=== PATIENT | female | born 1995 | race Caucasian/White ===

== ENCOUNTER 2017-07-18 21:57 | Emergency (ER) | payer OTHER ==
[2017-07-18 22:04] VITALS: BP 138/66; PULSE 120; TEMP 99.6; BMI 26.5
[2017-07-18] MEDS ORDERED: SODIUM CHLORIDE 0.9% 1000 ML INFUS.BAG IV ONE (22:34)
[2017-07-18] MEDS ORDERED: ONDANSETRON 4 MG/2 ML VIAL IVPUSH ONE (22:34)
[2017-07-18] MEDS ORDERED: LOPERAMIDE HCL 1 MG/5 ML UNIT DOSE CUP PO ONE (22:34)
--- NOTE | 2017-07-18 23:00 | PDOC ---
History of Present Illness - General Chief Complaint: Vomiting/Diarrhea Stated Complaint: FLU Time Seen by Provider: 07/18/17 22:00 - History of Present Illness Initial Comments: 07/18/17 22:55 CHIEF COMPLAINT: sore throat, vomiting, diarrhea HISTORY OF PRESENT ILLNESS: 21 yo F with no PMH presents to [facility] with cold symptoms, nausea, vomiting, and diarrhea. Patient reports that she started having a sore throat and chest discomfort yesterday. Today she vomited 4 times and had diarrhea "too many times to count." No recent travel or sick contacts. PAST MEDICAL HISTORY: Denies past medical history FAMILY HISTORY: Denies SOCIAL HISTORY: Denies tobacco, alcohol, illicit drug use. SURGICAL HISTORY: Denies ALLERGIES: No known drug allergies REVIEW OF SYSTEMS General/Constitutional: Denies fever or chills. Denies weakness. HEENT: Sore throat x 2 days. Denies change in vision. Denies ear pain or discharge. Cardiovascular: Denies chest pain or shortness of breath. Respiratory: Denies cough, wheezing, or hemoptysis. Gastrointestinal: Vomiting and diarrhea today. Denies rectal bleeding. Genitourinary: Denies dysuria, frequency, or change in urination. Musculoskeletal: Denies joint or muscle swelling or pain. Denies neck or back pain. Skin and breasts: Denies rash or easy bruising. Neurologic: Denies headache, vertigo, loss of consciousness, or loss of sensation. PHYSICAL EXAM General Appearance: Well-appearing, appropriately dressed. No apparent distress. HEENT: EOMI, PERRLA, normal ENT inspection, normal voice, TMs normal, pharynx normal. No conjunctival pallor. No photophobia, scleral icterus. Neck: Supple. Trachea midline. No tenderness, rigidity, carotid bruit, stridor , lymphadenopathy, or thyromegaly. Respiratory/Chest: Lungs CTAB. Cardiovascular: RRR. S1, S2. Gastrointestinal/Abdominal: Normal bowel sounds. Abdomen soft, non-distended. No tenderness or rebound tenderness. No organomegaly, pulsatile mass, guarding , hernia, hepatomegaly, splenomegaly. Musculoskeletal/Extremities: Normal inspection. FROM of all extremities, normal capillary refill. Pelvis Stable. No CVA tenderness. No tenderness to extremities, pedal edema, swelling, erythema or deformity. Integumentary: Appropriate color, dry, warm. No cyanosis, erythema, jaundice or rash Neurologic: gas regulator repairer helper II-XII intact. Fully oriented, alert. Appropriate mood/affect. Motor strength 5/5. No appreciable EOM palsy, facial droop or sensory deficit. Past History - Past Medical History Allergies/Adverse Reactions: Allergies Allergy/AdvReac Type Severity Reaction Status Date / Time No Known Allergies Allergy Verified 07/18/17 22:41 Home Medications: Ambulatory Orders Ibuprofen 600 mg PO Q6H PRN #28 tablet 07/19/17 Loperamide HCl/Simethicone [Imodium Multi-Symptom Rel Cplt] 1 each PO BID PRN # 14 tablet 07/19/17 Ondansetron [Zofran *Odt*] 8 mg SL TID #21 od.tablet 07/19/17 Pseudoephedrine HCl [Sudafed 12 Hour] 120 mg PO BID #14 tablet.er 07/19/17 - Suicide/Smoking/Psychosocial Hx Smoking History: Never smoked Have you smoked in the past 12 months: No Information on smoking cessation initiated: No Hx Alcohol Use: No Drug/Substance Use Hx: No *Physical Exam - Vital Signs Last Vital Signs Temp Pulse Resp BP Pulse Ox 99.6 F 120 H 19 138/66 98 07/18/17 22:03 07/18/17 22:03 07/18/17 22:03 07/18/17 22:03 07/18/17 22:03 ED Treatment Course - LABORATORY CBC & Chemistry Diagram: 07/18/17 23:13 07/18/17 23:13 Medical Decision Making - Medical Decision Making 07/19/17 00:59 21 yo F with no PMH presents to [facility] with cold symptoms, nausea, vomiting , and diarrhea. -CBC, CMP, lipase -UA, UCx, Upreg VS remakarable for temp 99.6 F and tachycardia to 120. Patient exam unremarkable. -Zofran, fluid, loperamide Repeat vitals temp 98.2 *DC/Admit/Observation/Transfer Diagnosis at time of Disposition: Viral syndrome - Discharge Dispostion Admit: No - Prescriptions Prescriptions: Ibuprofen 600 mg PO Q6H PRN #28 tablet PRN Reason: Fever or body aches Loperamide HCl/Simethicone [Imodium Multi-Symptom Rel Cplt] 1 each PO BID PRN # 14 tablet PRN Reason: Diarrhea Pseudoephedrine HCl [Sudafed 12 Hour] 120 mg PO BID #14 tablet.er Ondansetron [Zofran *Odt*] 8 mg SL TID #21 od.tablet - Referrals Referrals: Aidan Michaud MD [Staff Physician] - - Patient Instructions Printed Discharge Instructions: DI for Viral Syndrome Additional Instructions: Take medications as prescribed. Please follow up with your primary care doctor this week. If you develop fever unrelieved by Motrin, persistent vomiting, inability to tolerate any food or fluids, or any new or worsening symptoms, please return to the ER.
[2017-07-18] MEDS ORDERED: ONDANSETRON 4 MG/2 ML VIAL ONE (23:18)
[2017-07-18 23:19] LABS: URINE APPEARANCE SLCLOUDY; URINE BILIRUBIN NEGATIVE (NEGATIVE); URINE BLOOD 1+ (NEGATIVE); URINE COLOR YELLOW; URINE GLUCOSE (UA) NEGATIVE (NEGATIVE); URINE KETONE NEGATIVE (NEGATIVE); URINE NITRITE NEGATIVE (NEGATIVE); URINE PROTEIN NEGATIVE (NEGATIVE); URINE UROBILINOGEN NEGATIVE mg/dL (0.2-1.0)
[2017-07-18 23:19] LABS: BASOPHIL 0.4 % (0-2.0); EOSINOPHIL 0.4 % (0-4.5); MCH 30.5 pg (25.7-33.7); MCHC 34.1 g/dl (32.0-36.0); MEAN CELL VOLUME 89.4 fl (80-96); MEAN PLT VOLUME 7.6 fl (7.5-11.1); NEUTROPHILS 91.4 % (42.8-82.8); PLATELET COUNT 257 K/MM3 (134-434); WHITE BLOOD COUNT 16.3 K/mm3 (4.0-10.0)
[2017-07-18] MEDS ORDERED: LOPERAMIDE HCL 2 MG CAPSULE ONE (23:19)
[2017-07-18 23:22] LABS: URINE BACTERIA RARE /hpf (NONE SEEN); URINE HYALINE CAST 1 /lpf; URINE MUCUS RARE; URINE RBC 1 /hpf (0-3); URINE WBC 3 /hpf (3-5)
[2017-07-18] MEDS ORDERED: ACETAMINOPHEN 325 MG TABLET (FP) PO ONE (23:24)
[2017-07-18] MEDS ORDERED: KETOROLAC TROMETHAMINE 30 MG/1 ML VIAL IVPUSH ONE (23:25)
--- NOTE | 2017-07-18 23:33 | PDOC ---
*Physical Exam - Vital Signs Last Vital Signs Temp Pulse Resp BP Pulse Ox 99.6 F 120 H 19 138/66 98 07/18/17 22:03 07/18/17 22:03 07/18/17 22:03 07/18/17 22:03 07/18/17 22:03 - Physical Exam Comments: 07/18/17 23:33 The patient was examined by [PRANEETH Cm] under my direct supervision. I personally evaluated the patient. I concur with the above findings and the plan of care. ED Treatment Course - LABORATORY CBC & Chemistry Diagram: 07/18/17 23:13 07/18/17 23:13 - ADDITIONAL ORDERS Additional order review: Laboratory Results 07/18/17 23:16 Urine Color Yellow Urine Appearance Slcloudy Urine pH 5.0 Urine Protein Negative Urine Glucose (UA) Negative Urine Ketones Negative Urine Blood 1+ H Urine Nitrite Negative Urine Bilirubin Negative Urine Urobilinogen Negative Urine RBC 1 Urine WBC 3 Ur Epithelial Cells Rare Urine Bacteria Rare Hyaline Casts 1 Urine Mucus Rare 07/18/17 23:13 RBC 4.76 MCV 89.4 MCHC 34.1 RDW 14.0 MPV 7.6 Neutrophils % 91.4 H Lymphocytes % 3.9 L Monocytes % 3.9 Eosinophils % 0.4 Basophils % 0.4 - Medications Given in the ED: ED Medications Discontinued Medications Generic Name Dose Route Start Last Admin Trade Name Freq PRN Reason Stop Dose Admin Acetaminophen 650 mg 07/18/17 23:24 07/18/17 23:27 Tylenol - PO 07/18/17 23:25 Not Given ONCE ONE Loperamide HCl 2 mg 07/18/17 22:34 07/18/17 23:26 Imodium Liquid - PO 07/18/17 22:35 2 mg ONCE ONE Administration Ondansetron HCl 8 mg 07/18/17 22:34 07/18/17 23:26 Zofran Injection IVPUSH 07/18/17 22:35 8 mg ONCE ONE Administration Sodium Chloride 1,000 ml 07/18/17 22:34 07/18/17 23:26 Normal Saline - IV 07/18/17 22:35 1,000 ml ONCE ONE Administration *DC/Admit/Observation/Transfer Diagnosis at time of Disposition: Viral syndrome - Discharge Dispostion Disposition: HOME - Prescriptions Prescriptions: Ibuprofen 600 mg PO Q6H PRN #28 tablet PRN Reason: Fever or body aches Loperamide HCl/Simethicone [Imodium Multi-Symptom Rel Cplt] 1 each PO BID PRN # 14 tablet PRN Reason: Diarrhea Pseudoephedrine HCl [Sudafed 12 Hour] 120 mg PO BID #14 tablet.er Ondansetron [Zofran *Odt*] 8 mg SL TID #21 od.tablet - Referrals Referrals: Aidan Michaud MD [Staff Physician] - - Patient Instructions Printed Discharge Instructions: DI for Viral Syndrome Additional Instructions: Take medications as prescribed. Please follow up with your primary care doctor this week. If you develop fever unrelieved by Motrin, persistent vomiting, inability to tolerate any food or fluids, or any new or worsening symptoms, please return to the ER.
[2017-07-18 23:55] LABS: ALBUMIN 4.2 g/dl (3.4-5.0); ANION GAP 11 (8-16); BILIRUBIN,TOTAL 0.6 mg/dL (0.2-1.0); CALCIUM 9.1 mg/dL (8.5-10.1); CO2 25 mmol/L (21-32); CREATININE 0.7 mg/dL (0.55-1.02); GLUCOSE,RANDOM 102 mg/dL (74-106); SGOT/AST 14 U/L (15-37); SGPT/ALT 27 U/L (12-78); TOT PROT 8.1 g/dl (6.4-8.2)
[2017-07-18 23:56] LABS: ALK PHOS 64 U/L (45-117)
[2017-07-19] MEDS ORDERED: KETOROLAC TROMETHAMINE 30 MG/1 ML VIAL ONE (00:44)
[2017-07-19] MEDS ORDERED: SODIUM CHLORIDE 0.9% 500 ML INFUS.BAG IV ONE (01:10)
[2017-07-19 11:56] LABS: URINE LEUK ESTERASE Negative (NEGATIVE)
== END 2017-07-19 02:07 | disposition home or self-care (01) ==
LOC: JER 21:57
DX: B34.9 Viral infection, unspecified (principal)
CPT/HCPCS: 36415; 80053; 81003; 81015; 83605; 83690; 84703; 85025; 87070; 87077; 87086; 87430; 87804; 99283-25

== ENCOUNTER 2017-09-21 08:17 | Emergency (ER) | payer OTHER ==
[2017-09-21 08:22] VITALS: BMI 30.2
[2017-09-21] MEDS ORDERED: morphine CARPU-JECT 2 MG/1 ML DISP.SYRIN IVPUSH ONE (09:43)
[2017-09-21] MEDS ORDERED: ONDANSETRON 4 MG/2 ML VIAL IVPUSH ONE (09:43)
[2017-09-21] MEDS ORDERED: ONDANSETRON 4 MG/2 ML VIAL ONE (09:54)
[2017-09-21] MEDS ORDERED: morphine CARPU-JECT 8 MG/1 ML DISP.SYRIN ONE (09:54)
--- NOTE | 2017-09-21 09:58 | PDOC ---
History of Present Illness - General Chief Complaint: Vaginal Bleeding Stated Complaint: PAIN, VAGINAL BLEEDING Time Seen by Provider: 09/21/17 09:25 History Source: Patient Exam Limitations: No Limitations - History of Present Illness Travel History: No Initial Comments: 09/21/17 09:53 22 y/o female presents with heavy vaginal bleeding since this morning which she states is when her menses was due today. Patient denies history of endometriosis fibroids, heavy or irregular menses. Patient states has had painful menstruation the past and was placed on or contraceptives years ago by her CARTOGRAPHIC ENGINEER but stopped about 6 months ago Patient also denies . Patient states since this morning has vomited approximately 8 times and is having severe lower abdominal cramping without weakness, chills, or change in urine pattern. Timing/Duration: reports: constant Quality: reports: moderate, cramping Abdominal Pain Onset Location: reports: suprapubic Pain Radiation: reports: no radiation Aggravating Factors: improves with: None Alleviating Factors: improves with: None Past History - Travel Traveled outside of the country in the last 30 days: No - Past Medical History Allergies/Adverse Reactions: Allergies Allergy/AdvReac Type Severity Reaction Status Date / Time No Known Allergies Allergy Verified 09/21/17 08:22 Home Medications: Ambulatory Orders Ibuprofen [Motrin -] 600 mg PO TID PRN #21 tablet 09/21/17 COPD: No - Reproductive History LMP Normal: Yes Is Patient Now?: No - Suicide/Smoking/Psychosocial Hx Smoking History: Never smoked Have you smoked in the past 12 months: No Information on smoking cessation initiated: No Hx Alcohol Use: No Drug/Substance Use Hx: No Substance Use Type: None Patient Lives Alone: No Lives with/in: parents Review of Systems - Review of Systems Able to Perform ROS?: Yes Constitutional: No: Symptoms Reported HEENTM: No: Symptoms Reported Respiratory: No: Symptoms reported Cardiac (ROS): No: Symptoms Reported ABD/GI: Yes: Nausea, Vomiting, Abdominal cramping : Yes: Discharge (vaginal bleeding) Musculoskeletal: Yes: Back Pain (mild low) Integumentary: No: Symptoms Reported Neurological: No: Symptoms reported Hematologic/Lymphatic: No: Symptoms Reported *Physical Exam - Vital Signs Last Vital Signs Temp Pulse Resp BP Pulse Ox 97.9 F 74 18 132/61 97 09/21/17 08:19 09/21/17 08:19 09/21/17 08:19 09/21/17 08:19 09/21/17 08:19 - Physical Exam General Appearance: Yes: Nourished, Appropriately Dressed. No: Apparent Distress HEENT: positive: EOMI, [place], Pharynx Normal. negative: Pale Conjunctivae Neck: positive: Normal Thyroid, Supple Respiratory/Chest: positive: Lungs Clear, Normal Breath Sounds. negative: Respiratory Distress, Accessory Muscle Use Cardiovascular: positive: Regular Rhythm, Regular Rate. negative: Murmur Female Pelvic Exam: positive: vaginal bleeding (bright red) Gastrointestinal/Abdominal: positive: Normal Bowel Sounds, Soft, Tenderness ( midsuprapubic). negative: Distended, Guarding, Rebound Musculoskeletal: negative: CVA Tenderness Extremity: positive: Normal Capillary Refill Integumentary: positive: Normal Color, Warm, Moist Neurologic: positive: Motor Strength 5/5 (ambulatory) ED Treatment Course - LABORATORY CBC & Chemistry Diagram: 09/21/17 09:30 09/21/17 09:30 Medical Decision Making - Medical Decision Making 09/21/17 10:22 Pt with heavy menses and lower abd pain since this am. Pt vomited approx. 7-8 times. Pt on exam has midsuprabic tenderness. history of dysmenorrhea. Pt ordered for cbc, comp, lipase, mag, ua, upreg, zofran, ivf, morphine. Will consider ultrasound once diagnostics have resulted. 09/21/17 12:13 Laboratory Tests 09/21/17 09/21/17 09/21/17 09:30 09:30 10:20 WBC 10.5 H D Hgb 14.2 Hct 43.2 Neutrophils % 83.6 H Sodium 137 Potassium 4.2 D Chloride 107 Carbon Dioxide 24 Anion Gap 6 L BUN 9 D Creatinine 0.6 Random Glucose 104 Calcium 8.8 Magnesium 2.1 Total Bilirubin 0.5 AST 25 D ALT 58 D Urine Ketones Negative Urine Blood 3+ H Urine Nitrite Negative Ur Leukocyte Esterase Pending Urine RBC (Auto) 1557 Ur Epithelial Cells Rare Urine HCG, Qual Negative Patient ordered for ultrasound to rule out fibroids versus endometriosis. Patient otherwise comfortable 09/21/17 13:43 Ultrasound shows no uterine pathology noted. This is not free fluid noted within the cul-de-sac. Endometrial thickness appears unremarkable. There is no evidence of ovarian torsion. Patient be recommended to follow-up with her CARTOGRAPHIC ENGINEER. Patient also given prescription for Motrin 600 to take every 8 hours. 09/21/17 13:53 *DC/Admit/Observation/Transfer Diagnosis at time of Disposition: Dysmenorrhea - Discharge Dispostion Disposition: HOME Condition at time of disposition: Improved - Prescriptions Prescriptions: Ibuprofen [Motrin -] 600 mg PO TID PRN #21 tablet PRN Reason: Pain - Referrals - Patient Instructions Printed Discharge Instructions: DI for Dysmenorrhea Additional Instructions: May take Motrin for discomfort and please follow-up with your CARTOGRAPHIC ENGINEER. - Post Discharge Activity
[2017-09-21 10:31] LABS: URINE APPEARANCE SLCLOUDY; URINE BILIRUBIN NEGATIVE (NEGATIVE); URINE BLOOD 3+ (NEGATIVE); URINE COLOR LTYELLOW; URINE GLUCOSE (UA) NEGATIVE (NEGATIVE); URINE KETONE NEGATIVE (NEGATIVE); URINE LEUK ESTERASE NEGATIVE (NEGATIVE); URINE NITRITE NEGATIVE (NEGATIVE); URINE UROBILINOGEN NEGATIVE mg/dL (0.2-1.0)
[2017-09-21 10:32] LABS: BASO % 0.4 % (0-2.0); EOS % 0.8 % (0-4.5); MCH 29.6 pg (25.7-33.7); MCHC 32.9 g/dl (32.0-36.0); MEAN CELL VOLUME 89.9 fl (80-96); MEAN PLT VOLUME 7.7 fl (7.5-11.1); NEUT % 83.6 % (42.8-82.8); PLATELET COUNT 277 K/MM3 (134-434); RDW 14.3 % (11.6-15.6); WHITE BLOOD COUNT 10.5 K/mm3 (4.0-10.0)
[2017-09-21 10:40] LABS: URINE PROTEIN 1+ (NEGATIVE)
[2017-09-21 10:43] LABS: URINE RBC 1557 /hpf (0-3)
[2017-09-21 10:54] LABS: ANION GAP 6 (8-16); BILIRUBIN,TOTAL 0.5 mg/dL (0.2-1.0); CALCIUM 8.8 mg/dL (8.5-10.1); CO2 24 mmol/L (21-32); CREATININE 0.6 mg/dL (0.55-1.02); GLUCOSE,RANDOM 104 mg/dL (74-106); MAGNESIUM 2.1 mg/dL (1.8-2.4); SGOT/AST 25 U/L (15-37); SGPT/ALT 58 U/L (12-78)
[2017-09-21 10:55] LABS: ALK PHOS 67 U/L (45-117)
--- NOTE | 2017-09-21 13:05 | PDOC ---
*Physical Exam - Vital Signs Last Vital Signs Temp Pulse Resp BP Pulse Ox 97.9 F 74 18 132/61 97 09/21/17 08:19 09/21/17 08:19 09/21/17 08:19 09/21/17 08:19 09/21/17 08:19 ED Treatment Course - LABORATORY CBC & Chemistry Diagram: 09/21/17 09:30 09/21/17 09:30 - ADDITIONAL ORDERS Additional order review: Laboratory Results 09/21/17 09/21/17 10:20 09:30 Sodium 137 Potassium 4.2 D Chloride 107 Carbon Dioxide 24 Anion Gap 6 L BUN 9 D Creatinine 0.6 Creat Clearance w eGFR > 60 Random Glucose 104 Calcium 8.8 Magnesium 2.1 Total Bilirubin 0.5 AST 25 D ALT 58 D Alkaline Phosphatase 67 Total Protein 8.0 Albumin 4.0 Lipase 105 Urine Color Ltyellow Urine Appearance Slcloudy Urine pH 5.0 Ur Specific [place] 1.023 Urine Protein 1+ H Urine Glucose (UA) Negative Urine Ketones Negative Urine Blood 3+ H Urine Nitrite Negative Urine Bilirubin Negative Urine Urobilinogen Negative Urine WBC (Auto) None Urine RBC (Auto) 1557 Ur Epithelial Cells Rare Urine HCG, Qual Negative 09/21/17 09:30 RBC 4.80 MCV 89.9 MCHC 32.9 RDW 14.3 MPV 7.7 Neutrophils % 83.6 H Lymphocytes % 10.7 D Monocytes % 4.5 Eosinophils % 0.8 D Basophils % 0.4 - Medications Given in the ED: ED Medications Discontinued Medications Generic Name Dose Route Start Last Admin Trade Name Freq PRN Reason Stop Dose Admin Morphine Sulfate 4 mg 09/21/17 09:43 09/21/17 10:14 Morphine Injection - IVPUSH 09/21/17 09:44 4 mg ONCE ONE Administration Ondansetron HCl 4 mg 09/21/17 09:43 09/21/17 10:14 Zofran Injection IVPUSH 09/21/17 09:44 4 mg ONCE ONE Administration Medical Decision Making - Medical Decision Making 09/21/17 13:02 Patient seen and evaluated with the nurse practitioner. I agree with the overall evaluation, assessment, and management with the following summary of visit: 22y/o non female p/w pelvic pain. r/o fibroids v. torsion v. UTI. labs, ua tvus pain control dispo accordingly
[2017-09-21 14:29] VITALS: BP 121/75; PULSE 76; TEMP 98.6
[2017-09-21 15:57] LABS: URINE LEUK ESTERASE Negative (NEGATIVE)
== END 2017-09-21 14:00 | disposition home or self-care (01) ==
LOC: JER 08:17
PROC: 3E033NZ Introduction of Analgesics, Hypnotics, Sedatives into Peripheral Vein, Percutaneous Approach (ICD-10-PCS; principal; 2017-09-21)
PROC: 3E033GC Introduction of Other Therapeutic Substance into Peripheral Vein, Percutaneous Approach (ICD-10-PCS; 2017-09-21)
DX: N94.6 Dysmenorrhea, unspecified (principal)
CPT/HCPCS: 36415; 76830-TC; 80053; 81003; 81015; 83690; 83735; 84703; 85025; 99284-25

== ENCOUNTER 2017-11-30 19:08 | Emergency (ER) | payer OTHER ==
[2017-11-30] MEDS ORDERED: ONDANSETRON *ODT* 4 MG TABLET SL ONE (19:12)
--- NOTE | 2017-11-30 19:14 | PDOC ---
Rapid Medical Evaluation Chief Complaint: Cold Symptoms Time Seen by Provider: 11/30/17 19:10 Medical Evaluation: Allergies Allergy/AdvReac Type Severity Reaction Status Date / Time No Known Allergies Allergy Verified 09/21/17 08:22 11/30/17 19:11 CC: c/o " i think i have the flu." today with bodyaches, fever, vomiting, cough since yesterday. denies throat radha TMAX: 101. Tylenol : 11am + sick contacts with Influenza. PE: Patient alert ox3. breath sounds clear Plan: Urine hcg, zofran ODT. Patient to fast track for further management. 11/30/17 19:13
[2017-11-30 19:15] VITALS: BP 136/76; TEMP 100.7; BMI 31.1
[2017-11-30] MEDS ORDERED: ONDANSETRON *ODT* 4 MG TABLET ONE (19:16)
--- NOTE | 2017-11-30 19:35 | PDOC ---
History of Present Illness - General Chief Complaint: Respiratory Stated Complaint: COLD SYPTOMS Time Seen by Provider: 11/30/17 19:10 History Source: Patient Exam Limitations: No Limitations - History of Present Illness Initial Comments: 11/30/17 19:34 Best Contact: Pmhx:N/A Pshx: N/A Allergies: NKDA LMP: 11.12.2017 22-year-old female presents to the emergency department complaining of frontal headache, nausea/vomiting, fever/chills, general malaise without facial pains, rhinorrhea, nasal congestion, sore throat, neck pain/stiffness, back pain, chest pain, shortness of breath, abdominal pains, flank pains, urinary symptoms. Timing/Duration: reports: yesterday Past History - Past Medical History Allergies/Adverse Reactions: Allergies Allergy/AdvReac Type Severity Reaction Status Date / Time No Known Allergies Allergy Verified 11/30/17 19:11 Home Medications: Ambulatory Orders Acetaminophen [Tylenol] 325 mg PO QID PRN 11/30/17 Oseltamivir Phosphate [Tamiflu -] 75 mg PO BID #10 capsule 11/30/17 COPD: No - Suicide/Smoking/Psychosocial Hx Smoking History: Never smoked Have you smoked in the past 12 months: No Hx Alcohol Use: No Drug/Substance Use Hx: No Substance Use Type: None Review of Systems - Review of Systems Able to Perform ROS?: Yes Comments:: 11/30/17 19:33 CONSTITUTIONAL: +fever/chills, generalized weakness, malaise Absent: diaphoresis, loss of appetite HEENT: Absent: rhinorrhea, nasal congestion, throat pain, throat swelling, difficulty swallowing, mouth swelling, ear pain, eye pain, visual Changes CARDIOVASCULAR: Absent: chest pain, loss of consciousness, palpitations, irregular heart rate, peripheral edema RESPIRATORY: Absent: cough, shortness of breath, dyspnea with exertion, orthopnea, wheezing, stridor, hemoptysis GASTROINTESTINAL: Absent: abdominal pain, abdominal distension, nausea, vomiting, diarrhea, constipation, melena, hematochezia GENITOURINARY: Absent: dysuria, frequency, urgency, hesitancy, hematuria, flank pain, genital pain MUSCULOSKELETAL: Absent: myalgia, arthralgia, joint swelling SKIN: Absent: rash, itching, pallor Is the patient limited [place] proficient: No *Physical Exam - Vital Signs Last Vital Signs Temp Pulse Resp BP Pulse Ox 100.7 F H 113 H 22 136/76 96 11/30/17 19:13 11/30/17 19:13 11/30/17 19:13 11/30/17 19:13 11/30/17 19:13 - Physical Exam Comments: 11/30/17 19:34 GENERAL: Well developed, well nourished. Awake and alert. No acute distress. HEENT: Normocephalic, atraumatic. PERRLA, EOMI. No conjunctival pallor. Sclera are non- icteric. Moist mucous membranes. Oropharynx is clear. NECK: Supple. Full ROM. No JVD. Carotid pulses 2+ and symmetric, without bruits. No thyromegaly. No lymphadenopathy. CARDIOVASCULAR: Regular rate and rhythm. No murmurs, rubs, or gallops. Distal pulses are 2+ and symmetric. PULMONARY: No evidence of respiratory distress. Lungs clear to auscultation bilaterally. No wheezing, rales or rhonchi. ABDOMINAL: Soft. Non-tender. Non-distended. No rebound or guarding. No organomegaly. Normoactive bowel sounds. MUSCULOSKELETAL Normal range of motion at all joints. No bony deformities or tenderness. No CVA tenderness. EXTREMITIES: No cyanosis. No clubbing. No edema. No calf tenderness. SKIN: Warm and dry. Normal capillary refill. No rashes. No jaundice. ED Treatment Course - Medications Given in the ED: ED Medications Discontinued Medications Generic Name Dose Route Start Last Admin Trade Name Sunilq PRN Reason Stop Dose Admin Ondansetron HCl 4 mg 11/30/17 19:12 11/30/17 19:19 Zofran Odt - SL 11/30/17 19:13 4 mg ONCE ONE Administration *DC/Admit/Observation/Transfer Diagnosis at time of Disposition: Influenza - Discharge Dispostion Disposition: HOME Condition at time of disposition: Stable Admit: No - Prescriptions Prescriptions: Oseltamivir Phosphate [Tamiflu -] 75 mg PO BID #10 capsule - Referrals Referrals: ON STAFF,NOT [Primary Care Provider] - - Patient Instructions Printed Discharge Instructions: Influenza Additional Instructions: Increase fluids Tylenol alternating with Motrin as needed for fever/pain Tamiflu as prescribed Return to the ER for severe/persistent/worsening symptoms - Post Discharge Activity
[2017-11-30 20:39] LABS: URINE APPEARANCE CLEAR; URINE BILIRUBIN NEGATIVE (NEGATIVE); URINE BLOOD NEGATIVE (NEGATIVE); URINE COLOR YELLOW; URINE GLUCOSE (UA) NEGATIVE (NEGATIVE); URINE KETONE 1+ (NEGATIVE); URINE LEUK ESTERASE NEGATIVE (NEGATIVE); URINE NITRITE NEGATIVE (NEGATIVE); URINE UROBILINOGEN NEGATIVE mg/dL (0.2-1.0)
[2017-11-30 20:51] LABS: URINE PROTEIN 1+ (NEGATIVE)
[2017-11-30 20:55] LABS: EPI CELLS RARE /HPF (FEW); URINE BACTERIA RARE /hpf (NONE SEEN); URINE HYALINE CAST 2 /lpf; URINE MUCUS MANY
[2017-11-30] MEDS ORDERED: KETOROLAC TROMETHAMINE 60 MG/2 ML VIAL IM ONE (21:02)
[2017-11-30] MEDS ORDERED: SULFAMETHOXAZOLE/TRIMETHOPRIM 800MG/160MG D.S. TABLET PO ONE (21:02)
[2017-11-30] MEDS ORDERED: PHENAZOPYRIDINE HCL 100 MG TABLET (FP) PO ONE (21:03)
[2017-11-30] MEDS ORDERED: SODIUM CHLORIDE 1,000 ML IV STA (21:04)
[2017-11-30] MEDS ORDERED: KETOROLAC TROMETHAMINE 60 MG/2 ML VIAL ONE (21:07)
[2017-11-30 21:33] VITALS: PULSE 102
[2017-11-30 21:59] LABS: HCG,QUALITATIVE URINE NEGATIVE
== END 2017-11-30 21:23 | disposition home or self-care (01) ==
LOC: JERFT 19:08
DX: J11.1 Influenza due to unidentified influenza virus with other respiratory manifestations (principal)
CPT/HCPCS: 81003; 81015; 84703; 99281-25

== ENCOUNTER 2018-02-06 12:44 | Emergency (ER) | payer OTHER ==
[2018-02-06 12:48] VITALS: BP 115/76; PULSE 89; TEMP 98.5; BMI 33.7
--- NOTE | 2018-02-06 13:26 | PDOC ---
History of Present Illness - General Chief Complaint: Rash Stated Complaint: RASH Time Seen by Provider: 02/06/18 12:53 - History of Present Illness Initial Comments: 02/06/18 13:36 CHIEF COMPLAINT: rash HISTORY OF PRESENT ILLNESS: 22 yo F with no significant PMH presents to [facility] with generalized rash x 2 days. Patient reports that she was seen at urgent care yesterday and has been taking 50 mg of Benadryl every 6 hours, but the rash got worse this morning and spread to her legs. She denies any swelling to the face, throat, neck, mouth, tongue, or neck, and denies any respiratory distress. Per her photos, the rash has since started to improve since this morning. PAST MEDICAL HISTORY: Denies past medical history FAMILY HISTORY: Denies SOCIAL HISTORY: Denies tobacco, alcohol, illicit drug use. SURGICAL HISTORY: Denies ALLERGIES: No known drug allergies REVIEW OF SYSTEMS General/Constitutional: Denies fever or chills. Denies weakness, weight change. HEENT: Denies change in vision. Denies ear pain or discharge. Denies sore throat. Cardiovascular: Denies chest pain or shortness of breath. Respiratory: Denies cough, wheezing, or hemoptysis. Gastrointestinal: Denies nausea, vomiting, diarrhea or constipation. Denies rectal bleeding. Genitourinary: Denies dysuria, frequency, or change in urination. Musculoskeletal: Denies joint or muscle swelling or pain. Denies neck or back pain. Skin: Scattered rash. PHYSICAL EXAM General Appearance: Well-appearing, appropriately dressed. No apparent distress. HEENT: EOMI, PERRLA. No conjunctival pallor. No photophobia, scleral icterus. Respiratory/Chest: Lungs CTAB. Cardiovascular: RRR. S1, S2. Musculoskeletal/Extremities: Normal inspection. FROM of all extremities, normal capillary refill. Pelvis Stable. No CVA tenderness. No tenderness to extremities, pedal edema, swelling, erythema or deformity. Integumentary: Scattered erythematous, pruritic rash to legs, no blisters, weeping lisons. Appropriate color, dry, warm. No cyanosis, erythema, jaundice or rash Neurologic: staff pharmacist II-XII intact. Fully oriented, alert. Appropriate mood/affect. Motor strength 5/5. No appreciable EOM palsy, facial droop or sensory deficit. Past History - Past Medical History Allergies/Adverse Reactions: Allergies Allergy/AdvReac Type Severity Reaction Status Date / Time No Known Allergies Allergy Verified 02/06/18 12:48 Home Medications: Ambulatory Orders Acetaminophen [Tylenol] 325 mg PO QID PRN 11/30/17 Ondansetron [Ondansetron Odt] 4 mg PO TID #5 tab.rapdis 11/30/17 Ondansetron [Zofran -] 4 mg PO BID #5 tablet 11/30/17 Oseltamivir Phosphate [Tamiflu -] 75 mg PO BID #10 capsule 11/30/17 Oseltamivir Phosphate [Tamiflu -] 75 mg PO BID #10 capsule 11/30/17 EPINEPHrine (EPI-PEN 0.3MG) [Epipen 0.3MG -] 0.3 mg IM ASDIR #2 pens 02/06/18 COPD: No - Suicide/Smoking/Psychosocial Hx Smoking History: Never smoked Have you smoked in the past 12 months: No Hx Alcohol Use: No Drug/Substance Use Hx: No Substance Use Type: None *Physical Exam - Vital Signs Last Vital Signs Temp Pulse Resp BP Pulse Ox 98.5 F 89 18 115/76 99 02/06/18 12:45 02/06/18 12:45 02/06/18 12:45 02/06/18 12:45 02/06/18 12:45 Medical Decision Making - Medical Decision Making 02/06/18 13:42 22 yo F with no significant PMH presents to [facility] track with generalized rash x 2 days. -decadron epipen rx sent to pharm *DC/Admit/Observation/Transfer Diagnosis at time of Disposition: Rash - Discharge Dispostion Disposition: HOME Condition at time of disposition: Stable Admit: No - Prescriptions Prescriptions: EPINEPHrine (EPI-PEN 0.3MG) [Epipen 0.3MG -] 0.3 mg IM ASDIR #2 pens - Referrals Referrals: Nadja Galdamez MD [Staff Physician] - - Patient Instructions Printed Discharge Instructions: DI for Rash Additional Instructions: Please follow up with the gas jockey for further skin testing. As discussed, if you develop ANY swelling to the face, neck, throat, tongue, lips, or mouth, or you develop any difficulty breathing, please use the Epipen immediately and go to the nearest emergency room. - Post Discharge Activity
[2018-02-06] MEDS ORDERED: DEXAMETHASONE LIQUID 0.5 MG/5 ML 240 ML BULK BOTTLE PO ONE (13:35)
[2018-02-06] MEDS ORDERED: DEXAMETHASONE SOD PHOSPHATE 10 MG/1 ML VIAL ONE (13:40)
== END 2018-02-06 14:41 | disposition home or self-care (01) ==
LOC: JERFT 12:44
DX: R21 Rash and other nonspecific skin eruption (principal)
CPT/HCPCS: 99281-25

== ENCOUNTER 2018-07-21 22:09 | Emergency (ER) | payer OTHER ==
[2018-07-21 22:12] VITALS: BP 116/69; PULSE 86; TEMP 98; BMI 32.2
[2018-07-21] MEDS ORDERED: DIPHTH,PERTUSS(ACELL),TET 0.5 ML DISP.SYRIN IM ONE (23:19)
--- NOTE | 2018-07-21 23:40 | PDOC ---
History of Present Illness - General Chief Complaint: Laceration Stated Complaint: LACERATION Time Seen by Provider: 07/21/18 23:12 - History of Present Illness Initial Comments: 07/21/18 23:36 CHIEF COMPLAINT: laceration HISTORY OF PRESENT ILLNESS: 22 yo F with no PMH presents to fast track with laceration to left hand s/p injury at work. 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 Patient reports last tetanus shot was approximately 10-11 years ago. No recent travel or sick contacts. PAST MEDICAL HISTORY: Denies past medical history FAMILY HISTORY: Denies SOCIAL HISTORY: Denies tobacco, alcohol, illicit drug use. SURGICAL HISTORY: Denies ALLERGIES: No known drug allergies REVIEW OF SYSTEMS General/Constitutional: Denies fever or chills. Denies weakness, weight change. HEENT: Denies change in vision. Denies ear pain or discharge. Denies sore throat. Cardiovascular: Denies chest pain or shortness of breath. Respiratory: Denies cough, wheezing, or hemoptysis. Gastrointestinal: Denies nausea, vomiting, diarrhea or constipation. Denies rectal bleeding. Genitourinary: Denies dysuria, frequency, or change in urination. Musculoskeletal: Denies joint or muscle swelling or pain. Denies neck or back pain. 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 No apparent distress , no intoxication. HEENT: EOMI, PERRLA, normal ENT inspection, normal voice, TMs normal, pharynx normal. No conjunctival pallor. No photophobia, scleral icterus. Neck: Supple. Trachea midline. No tenderness, rigidity, carotid bruit, stridor , lymphadenopathy, or thyromegaly. Respiratory/Chest: Lungs CTAB. No shortness of breath, chest tenderness, respiratory distress, accessory muscle use. No crackles, rales, rhonchi, stridor , wheezing, dullness Cardiovascular: RRR. S1, S2. No JVD, murmur, bradycardia, tachycardia. Vascular Pulses: Dorsalis-Pedis (R): 2+, Dorsalis-Pedis (L): 2+ Gastrointestinal/Abdominal: Normal bowel sounds. Abdomen soft, non-distended. No tenderness or rebound tenderness. No organomegaly, pulsatile mass, guarding , hernia, hepatomegaly, splenomegaly. Lymphatic: No adenopathy, tenderness. Musculoskeletal/Extremities: Normal inspection. FROM of all extremities, normal capillary refill. Pelvis Stable. No CVA tenderness. No tenderness to extremities, pedal edema, swelling, erythema or deformity. Integumentary: 0.5 cm superficial laceration to palmar aspect of left hand just proximal to 4th digit. No active bleeding, no tendon involvement, full ROM to all digits and hand. Appropriate color, dry, warm. No cyanosis, erythema, jaundice or rash Neurologic: digital tech II-XII intact. Fully oriented, alert. Appropriate mood/affect. Motor strength 5/5. No appreciable EOM palsy, facial droop or sensory deficit. Past History - Past Medical History Allergies/Adverse Reactions: Allergies Allergy/AdvReac Type Severity Reaction Status Date / Time No Known Allergies Allergy Verified 07/21/18 22:12 Home Medications: Ambulatory Orders Acetaminophen [Tylenol] 325 mg PO QID PRN 11/30/17 Ondansetron [Ondansetron Odt] 4 mg PO TID #5 tab.rapdis 11/30/17 Ondansetron [Zofran -] 4 mg PO BID #5 tablet 11/30/17 Oseltamivir Phosphate [Tamiflu -] 75 mg PO BID #10 capsule 11/30/17 Oseltamivir Phosphate [Tamiflu -] 75 mg PO BID #10 capsule 11/30/17 EPINEPHrine (EPI-PEN 0.3MG) [Epipen 0.3MG -] 0.3 mg IM ASDIR #2 pens 02/06/18 COPD: No - Suicide/Smoking/Psychosocial Hx Smoking History: Never smoked Have you smoked in the past 12 months: No Hx Alcohol Use: No Drug/Substance Use Hx: No Substance Use Type: None *Physical Exam - Vital Signs Last Vital Signs Temp Pulse Resp BP Pulse Ox 98.0 F 86 18 116/69 98 07/21/18 22:10 07/21/18 22:10 07/21/18 22:10 07/21/18 22:10 07/21/18 22:10 ED Treatment Course - Medications Given in the ED: ED Medications Discontinued Medications Generic Name Dose Route Start Last Admin Trade Name Freq PRN Reason Stop Dose Admin Diphtheria/Tetanus/Acell Pertussis 0.5 ml 07/21/18 23:19 07/21/18 23:33 Boostrix - IM 07/21/18 23:20 0.5 ml .ONCE ONE Administration Medical Decision Making - Medical Decision Making 07/21/18 23:38 22 yo F with no PMH presents to ED with superficial laceration to left hand. -tdap laceration repaired with skin adhesive, no active bleeding. *DC/Admit/Observation/Transfer Diagnosis at time of Disposition: Laceration - Discharge Dispostion Disposition: HOME Condition at time of disposition: Stable Decision to Admit order: No - Referrals Referrals: Ward Palacios MD [Staff Physician] - - Patient Instructions Printed Discharge Instructions: DI for Laceration Repair Additional Instructions: If the pain in your hand persists for more than 3-5 days, please follow up with the hand surgeon for further evaluation and treatment of your injury. Please monitor your injury for any signs of infection, including redness, warmth , swelling, or streaking from the site of injury. If any of these develop, or you develop fever, chills, vomiting, or diarrhea, please return to the ER. - Post Discharge Activity Forms/Work/School Notes: Back to Work
== END 2018-07-21 23:42 | disposition home or self-care (01) ==
LOC: JERFT 22:09 → JER 22:09
PROC: 3E0234Z Introduction of Serum, Toxoid and Vaccine into Muscle, Percutaneous Approach (ICD-10-PCS; principal; 2018-07-21)
PROC: 0HQGXZZ Repair Left Hand Skin, External Approach (ICD-10-PCS; 2018-07-21)
DX: S61.412A Laceration without foreign body of left hand, initial encounter (principal); W26.0XXA Contact with knife, initial encounter; Y93.G1 Activity, food preparation and clean up; Y92.89 Other specified places as the place of occurrence of the external cause; Y99.0 Civilian activity done for income or pay
CPT/HCPCS: 90715; 99282-25

== ENCOUNTER 2018-08-09 08:30 | Emergency (ER) | payer OTHER ==
[2018-08-09 08:38] VITALS: TEMP 98.8; BMI 32.2
--- NOTE | 2018-08-09 08:49 | PDOC ---
History of Present Illness - General Chief Complaint: Pain Stated Complaint: VAGINAL BLEEDING, NAUSEA Time Seen by Provider: 08/09/18 08:47 History Source: Patient Past History - Past Medical History Allergies/Adverse Reactions: Allergies Allergy/AdvReac Type Severity Reaction Status Date / Time No Known Allergies Allergy Verified 07/21/18 22:12 Home Medications: Ambulatory Orders Acetaminophen [Tylenol] 325 mg PO QID PRN 11/30/17 Ondansetron [Ondansetron Odt] 4 mg PO TID #5 tab.rapdis 11/30/17 EPINEPHrine (EPI-PEN 0.3MG) [Epipen 0.3MG -] 0.3 mg IM ASDIR #2 pens 02/06/18 COPD: No - Suicide/Smoking/Psychosocial Hx Smoking History: Never smoked Have you smoked in the past 12 months: No Hx Alcohol Use: No Drug/Substance Use Hx: No Substance Use Type: None *Physical Exam - Vital Signs Last Vital Signs Temp Pulse Resp BP Pulse Ox 98.8 F 79 20 129/74 98 08/09/18 08:36 08/09/18 08:36 08/09/18 08:36 08/09/18 08:36 08/09/18 08:36
[2018-08-09] MEDS ORDERED: KETOROLAC TROMETHAMINE 30 MG/1 ML VIAL IVPUSH ONE (09:43)
[2018-08-09] MEDS ORDERED: ACETAMINOPHEN 1000 MG/100 ML VIAL (NON FORMULARY) IVPB ONE (09:43)
[2018-08-09] MEDS ORDERED: SODIUM CHLORIDE 0.9% 1000 ML INFUS.BAG IV ONE (09:43)
[2018-08-09] MEDS ORDERED: ONDANSETRON 4 MG/2 ML VIAL IVPUSH ONE (09:43)
--- NOTE | 2018-08-09 10:19 | PDOC ---
History of Present Illness - General History Source: Patient Exam Limitations: No Limitations - History of Present Illness Initial Comments: 08/09/18 10:20 The patient is a 22 year old female with no past medical history who presents to the emergency department for evaluation of nausea and vomiting. Patient reports moderate abdominal discomfort secondary to menstruation. She reports associated symptoms of nausea and non bloody emesis. Patient denies possible . Patient admits that these symptoms usually present with her menstrual periods. She reports taking tylenol and Toradol this morning with no alleviation to her symptoms. The patient denies chest pain, shortness of breath, dizziness, headache, fevers , chills, diarrhea, constipation, and any urinary symptoms. Allergies: No known allergies Social History: No reported alcohol, cigarette, or drug use. <Jayy Iniguez - Last Filed: 08/09/18 10:29> <Johnny Rogers - Last Filed: 08/09/18 13:02> - General Chief Complaint: Pain Stated Complaint: VAGINAL BLEEDING, NAUSEA Time Seen by Provider: 08/09/18 08:47 Past History <Jayy Iniguez - Last Filed: 08/09/18 10:29> - Past Medical History COPD: No - Reproductive History Is Patient Now?: No - Suicide/Smoking/Psychosocial Hx Smoking History: Never smoked Have you smoked in the past 12 months: No Hx Alcohol Use: No Drug/Substance Use Hx: No Substance Use Type: None <Johnny Rogers - Last Filed: 08/09/18 13:02> - Past Medical History Allergies/Adverse Reactions: Allergies Allergy/AdvReac Type Severity Reaction Status Date / Time No Known Allergies Allergy Verified 07/21/18 22:12 Home Medications: Ambulatory Orders Acetaminophen [Tylenol] 325 mg PO QID PRN 11/30/17 EPINEPHrine (EPI-PEN 0.3MG) [Epipen 0.3MG -] 0.3 mg IM ASDIR #2 pens 02/06/18 Ondansetron [Zofran Odt -] 4 mg SL TID #21 od.tablet 08/09/18 Review of Systems - Review of Systems Able to Perform ROS?: Yes Comments:: A complete review of 10 out of 10 review of systems is taken and is negative apart from what is previously mentioned below and in the HPI. <Jayy Iniguez - Last Filed: 08/09/18 10:29> *Physical Exam - Vital Signs Last Vital Signs Temp Pulse Resp BP Pulse Ox 98.8 F 79 20 129/74 98 08/09/18 08:36 08/09/18 08:36 08/09/18 08:36 08/09/18 08:36 08/09/18 08:36 - Physical Exam Comments: Vitals: Triage Vital signs reviewed General Appearance: no acute distress, well nourished well developed, Head: Atraumatic, normocephalic Neck: Supple Chest Wall: Nontender Cardiac: Regular rate and rhythm, no murmurs, no rubs, no gallops, Lungs: Clear to auscultation bilateral, good air movement bilaterally, Abdomen: (+)Mild diffuse abdominal discomfort. Extremities: Full range of motion to all extremities, no cyanosis, clubbing, or edema Skin: Warm and dry, no rashes or lesions, no petechiae Psych: normal mood, normal affect <Jayy Iniguez - Last Filed: 08/09/18 10:29> - Vital Signs Last Vital Signs Temp Pulse Resp BP Pulse Ox 98.8 F 79 20 129/74 98 08/09/18 08:36 08/09/18 08:36 08/09/18 08:36 08/09/18 08:36 08/09/18 08:36 <Johnny Rogers - Last Filed: 08/09/18 13:02> ED Treatment Course - LABORATORY CBC & Chemistry Diagram: 08/09/18 10:10 08/09/18 10:10 <Jayy Iniguez - Last Filed: 08/09/18 10:29> - LABORATORY CBC & Chemistry Diagram: 08/09/18 10:10 08/09/18 10:10 <Johnny Rogers - Last Filed: 08/09/18 13:02> Medical Decision Making - Medical Decision Making The patient is a 22 year old female with no past medical history who presents to the emergency department for evaluation of nausea and vomiting. Plans: IV Fluids CBC/CMP Urinalysis <Jayy Iniguez - Last Filed: 08/09/18 10:29> - Medical Decision Making Pt. states the symptoms are typical for her menstrual cycle but more severe she has had symptoms this severe in the past There are no focal findings on her abdominal examination. There is no rebound no guarding no evidence of acute surgical abdomen. Status post IV fluids Tylenol Toradol patient feels much better now tolerating fluids We'll discharge home with prescription for Zofran Findings, need for follow-up and strict return instructions discussed with patient. <Johnny Rogers - Last Filed: 08/09/18 13:02> *DC/Admit/Observation/Transfer - Attestations Scribe Attestion: Documentation prepared by Jayy Iniguez, acting as medical claims processor for Johnny Rogers MD. <Jayy Iniguez - Last Filed: 08/09/18 10:29> - Discharge Dispostion Decision to Admit order: No <Johnny Rogers - Last Filed: 08/09/18 13:02> Diagnosis at time of Disposition: Dysmenorrhea - Discharge Dispostion Disposition: HOME Condition at time of disposition: Fair - Prescriptions Prescriptions: Ondansetron [Zofran Odt -] 4 mg SL TID #21 od.tablet - Referrals Referrals: Teddy Rojas MD [Staff Physician] - - Patient Instructions Printed Discharge Instructions: Dysmenorrhea (Alternative Therapy) Additional Instructions: Drink plenty of fluids. Alternate Tylenol Motrin every 3 hours as needed for pain. Zofran as needed for nausea. Follow-up with your [employer] or with this week. Return to ED for any concerns. - Post Discharge Activity Forms/Work/School Notes: Back to Work
[2018-08-09 10:22] LABS: BASO % 0.2 % (0-2.0); EOS % 1.6 % (0-4.5); HEMATOCRIT 39.7 % (32.4-45.2); HEMOGLOBIN 13.9 GM/dL (10.7-15.3); LYMPH % 28.7 % (8-40); MCH 30.6 pg (25.7-33.7); MEAN CELL VOLUME 87.5 fl (80-96); MEAN PLT VOLUME 7.6 fl (7.5-11.1); NEUT % 63.5 % (42.8-82.8); PLATELET COUNT 306 K/MM3 (134-434); RBC 4.53 M/mm3 (3.60-5.2); RDW 14.3 % (11.6-15.6); WHITE BLOOD COUNT 6.2 K/mm3 (4.0-10.0)
[2018-08-09] MEDS ORDERED: ACETAMINOPHEN INJECTION 100 ML IVPB ONE (10:24)
[2018-08-09] MEDS ORDERED: KETOROLAC TROMETHAMINE 30 MG/1 ML VIAL ONE (10:25)
[2018-08-09] MEDS ORDERED: ONDANSETRON 4 MG/2 ML VIAL ONE (10:25)
[2018-08-09 10:53] LABS: ALBUMIN 3.8 g/dl (3.4-5.0); ALK PHOS 67 U/L (45-117); ANION GAP 10 MMOL/L (8-16); BILIRUBIN,TOTAL 0.3 mg/dL (0.2-1); BLOOD UREA NITROGEN 12 mg/dL (7-18); CALCIUM 8.7 mg/dL (8.5-10.1); CHLORIDE 104 mmol/L (98-107); CO2 24 mmol/L (21-32); CREATININE 0.6 mg/dL (0.55-1.3); GLUCOSE,RANDOM 116 mg/dL (74-106); POTASSIUM 3.8 mmol/L (3.5-5.1); SGOT/AST 13 U/L (15-37); SGPT/ALT 22 U/L (13-61); SODIUM 139 mmol/L (136-145); TOT PROT 7.8 g/dl (6.4-8.2)
[2018-08-09 12:47] LABS: HCG,QUALITATIVE URINE Negative
[2018-08-09 13:06] LABS: URINE APPEARANCE CLOUDY; URINE BILIRUBIN NEGATIVE (<2.0 mg/dL); URINE COLOR YELLOW; URINE GLUCOSE (UA) NEGATIVE (NEGATIVE); URINE KETONE NEGATIVE (NEGATIVE); URINE LEUK ESTERASE NEGATIVE (NEGATIVE); URINE NITRITE NEGATIVE (NEGATIVE); URINE PROTEIN 1+ (NEGATIVE); URINE UROBILINOGEN NEGATIVE mg/dL (0.2-1.0)
[2018-08-09 13:18] LABS: EPI CELLS MODERATE /HPF (FEW); URINE BACTERIA RARE /hpf (NONE SEEN)
[2018-08-09 13:22] VITALS: BP 104/54; PULSE 70
== END 2018-08-09 13:23 | disposition home or self-care (01) ==
LOC: JER 08:30
PROC: 3E033GC Introduction of Other Therapeutic Substance into Peripheral Vein, Percutaneous Approach (ICD-10-PCS; principal; 2018-08-09)
PROC: 3E033NZ Introduction of Analgesics, Hypnotics, Sedatives into Peripheral Vein, Percutaneous Approach (ICD-10-PCS; 2018-08-09)
PROC: 3E0333Z Introduction of Anti-inflammatory into Peripheral Vein, Percutaneous Approach (ICD-10-PCS; 2018-08-09)
DX: N94.6 Dysmenorrhea, unspecified (principal)
CPT/HCPCS: 36415; 80053; 81003; 81015; 84703; 85025; 96374; 96375; 99283-25; J0131; J7030

== ENCOUNTER 2018-09-13 18:30 | Emergency (ER) | payer OTHER ==
[2018-09-13 18:40] VITALS: BP 133/64; PULSE 83; TEMP 98.8; BMI 31.2
[2018-09-13] MEDS ORDERED: MECLIZINE HCL 25 MG TABLET (FP) PO ONE (19:28)
--- NOTE | 2018-09-13 19:30 | PDOC ---
History of Present Illness - General Chief Complaint: Lightheaded Stated Complaint: Lightheaded OVER A WEEK Time Seen by Provider: 09/13/18 19:22 - History of Present Illness Initial Comments: 09/13/18 19:29 23-year-old female without comorbidities presents for evaluation of vertiginous symptoms times one week associated with lower abdominal pain Past History - Past Medical History Allergies/Adverse Reactions: Allergies Allergy/AdvReac Type Severity Reaction Status Date / Time No Known Allergies Allergy Verified 07/21/18 22:12 Home Medications: Ambulatory Orders EPINEPHrine (EPI-PEN 0.3MG) [Epipen 0.3MG -] 0.3 mg IM ASDIR #2 pens 02/06/18 Meclizine HCl [Antivert -] 25 mg PO DAILY #30 tablet 09/13/18 Cancer: No COPD: No DVT: No GI Disorders: No Hypercholesterolemia: No Lung CA: No - Surgical History Appendectomy: No Gastric Stapling: No GI Surgery: No Neurologic Surgery: No - Immunization History Immunization Up to Date: No - Suicide/Smoking/Psychosocial Hx Smoking History: Never smoked Have you smoked in the past 12 months: No Information on smoking cessation initiated: No Hx Alcohol Use: No Drug/Substance Use Hx: No Substance Use Type: None Review of Systems - Review of Systems Constitutional: No: Fever ABD/GI: Yes: Nausea : No: Burning Neurological: Yes: See HPI, Dizziness *Physical Exam - Vital Signs Last Vital Signs Temp Pulse Resp BP Pulse Ox 98.8 F 83 18 133/64 99 09/13/18 18:37 09/13/18 18:37 09/13/18 18:37 09/13/18 18:37 09/13/18 18:37 - Physical Exam Comments: 09/13/18 19:30 HEAD: NC/AT EYES: Conjuntiva clear Ears: Canals and TM's normal NOSE: No d/c THROAT: Moist mucous membrances, oral pharanx clear, uvula midline NECK: Supple without adenopathy CARDIAC: S1 S2 LUNGS: CTA Full and Equal breath sounds ABDOMEN: Soft NT ND MS: Full ROM in all joints without edema NEUROLOGIC: No gross sensory or motor deficits, NVID SKIN: Normal color and temperature no lesions or rashes Moderate Sedation - Procedure Monitoring Vital Signs: Procedure Monitoring Vital Signs Temperature 98.8 F 09/13/18 18:37 Pulse Rate 83 09/13/18 18:37 Respiratory Rate 18 09/13/18 18:37 Blood Pressure 133/64 09/13/18 18:37 O2 Sat by Pulse Oximetry (%) 99 09/13/18 18:37 *DC/Admit/Observation/Transfer Diagnosis at time of Disposition: Vertigo - Discharge Dispostion Disposition: HOME Condition at time of disposition: Improved Decision to Admit order: No - Referrals Referrals: Suresh Banegas MD [Staff Physician] - - Patient Instructions Printed Discharge Instructions: DI for Vertigo, DI for Benign Paroxysmal Positional Vertigo Additional Instructions: Please take the medication as directed. Return to the emergency room should symptoms worsen or go unresolved and follow-up with the primary care physician I recommended few within the next 1-2 days for further evaluation and treatment options. - Post Discharge Activity
[2018-09-13] MEDS ORDERED: MECLIZINE HCL 25 MG TABLET (FP) ONE (19:34)
[2018-09-13 19:50] LABS: URINE APPEARANCE CLEAR; URINE BILIRUBIN NEGATIVE (<2.0 mg/dL); URINE COLOR STRAW; URINE GLUCOSE (UA) NEGATIVE (NEGATIVE); URINE KETONE NEGATIVE (NEGATIVE); URINE LEUK ESTERASE NEGATIVE (NEGATIVE); URINE NITRITE NEGATIVE (NEGATIVE); URINE PROTEIN NEGATIVE (NEGATIVE); URINE UROBILINOGEN NEGATIVE mg/dL (0.2-1.0)
[2018-09-13 19:51] LABS: HCG,QUALITATIVE URINE Negative
== END 2018-09-13 20:18 | disposition home or self-care (01) ==
LOC: JERFT 18:30
DX: R42 Dizziness and giddiness (principal)
CPT/HCPCS: 81003; 84703; 87086; 99281-25

== ENCOUNTER 2018-10-21 16:53 | Emergency (ER) | payer OTHER ==
[2018-10-21 17:04] VITALS: BP 118/64; PULSE 77; TEMP 99.1; BMI 33.3
--- NOTE | 2018-10-21 17:04 | PDOC ---
Rapid Medical Evaluation Time Seen by Provider: 10/21/18 17:03 Medical Evaluation: Allergies Allergy/AdvReac Type Severity Reaction Status Date / Time No Known Allergies Allergy Verified 07/21/18 22:12 10/21/18 17:03 I have performed a brief in-person evaluation of this patient. The patient presents with a chief complaint of: Vomiting and diarrhea since yesterday. Multiple contacts with same. Pertinent physical exam findings: Mild epigastric tenderness. T 99.1. I have ordered the following: Labs, urine. The patient will proceed to the ED for further evaluation. Discharge Disposition - Diagnosis Vomiting and diarrhea - Referrals - Patient Instructions - Post Discharge Activity
[2018-10-21 17:29] LABS: BASO % 0.4 % (0-2.0); EOS % 0.9 % (0-4.5); HEMATOCRIT 38.8 % (32.4-45.2); HEMOGLOBIN 13.5 GM/dL (10.7-15.3); MCHC 34.8 g/dl (32.0-36.0); MEAN CELL VOLUME 86.2 fl (80-96); MONO % 6.5 % (3.8-10.2); NEUT % 63.2 % (42.8-82.8); PLATELET COUNT 319 K/MM3 (134-434); RBC 4.51 M/mm3 (3.60-5.2); WHITE BLOOD COUNT 8.2 K/mm3 (4.0-10.0)
[2018-10-21 17:34] LABS: HCG,QUALITATIVE URINE Negative
[2018-10-21 17:53] LABS: ALBUMIN 4.2 g/dl (3.4-5.0); ALK PHOS 71 U/L (45-117); ANION GAP 8 MMOL/L (8-16); BILIRUBIN,TOTAL 0.3 mg/dL (0.2-1); BLOOD UREA NITROGEN 8 mg/dL (7-18); CALCIUM 9.3 mg/dL (8.5-10.1); CHLORIDE 103 mmol/L (98-107); CO2 26 mmol/L (21-32); CREATININE 0.7 mg/dL (0.55-1.3); GLUCOSE,RANDOM 81 mg/dL (74-106); POTASSIUM 3.7 mmol/L (3.5-5.1); SGOT/AST 23 U/L (15-37); SGPT/ALT 37 U/L (13-61); SODIUM 137 mmol/L (136-145); TOT PROT 8.3 g/dl (6.4-8.2)
[2018-10-21 18:00] LABS: URINE APPEARANCE SLCLOUDY; URINE BILIRUBIN NEGATIVE (<2.0 mg/dL); URINE COLOR YELLOW; URINE GLUCOSE (UA) NEGATIVE (NEGATIVE); URINE KETONE 1+ (NEGATIVE); URINE LEUK ESTERASE TRACE (NEGATIVE); URINE NITRITE NEGATIVE (NEGATIVE); URINE PROTEIN NEGATIVE (NEGATIVE); URINE UROBILINOGEN NEGATIVE mg/dL (0.2-1.0)
[2018-10-21 18:04] LABS: EPI CELLS MODERATE /HPF (FEW); URINE HYALINE CAST 2 /lpf; URINE MUCUS RARE
--- NOTE | 2018-10-21 18:23 | PDOC ---
Attending Attestation - HPI HPI: 10/21/18 19:39 Patient is a 23 year old female with a significant past medical history of peripheral vertigo who presents to the ED with complaints of nausea and vomiting that began yesterday morning. Patient reports waking up yesterday morning and experiencing gradual onset of nausea with x1- episodes of vomiting. She reports experiencing associated symptoms of diarrhea that she states occured 2 days ago, as well as diffuse abdominal pain, dizziness, fever and chills. Patient reports her sister has been experiencing vomiting and diarrhea for 1 week. Denies chest pain, Sob. Denies nausea, vomiting. Denies fevers, chills. Denies dysuria, hematuria. Denies constipation, diarrhea. Denies trauma to affected area, loss of consciousness. Denies out of state travelling. Denies any other symptoms. Allergies: None Social history: No smoking, No alcohol. No illicit drugs. Surgical: None PMD: Dr. Pandya - Physicial Exam PE: 10/21/18 19:39 GENERAL: +mildly obese. Awake, alert, and fully oriented, in no acute distress HEAD: No signs of trauma EYES: PERRLA, EOMI, sclera anicteric, conjunctiva clear ENT: Auricles normal inspection, hearing grossly normal, nares patent, oropharynx clear without exudates. Moist mucosa NECK: Normal ROM, supple, no lymphadenopathy, JVD, or masses LUNGS: Breath sounds equal, clear to auscultation bilaterally. No wheezes, and no crackles HEART: Regular rate and rhythm, normal S1 and S2, no murmurs, rubs or gallops ABDOMEN: +Mild epigastric tenderness. Soft, nontender, normoactive bowel sounds. No guarding, no rebound. No masses EXTREMITIES: Normal range of motion, no edema. No clubbing or cyanosis. No cords, erythema, or tenderness NEUROLOGICAL: Cranial nerves II through XII grossly intact. Normal speech, normal gait SKIN: Warm, Dry, normal turgor, no rashes or lesions noted. <Ravi Pinto - Last Filed: 10/21/18 19:39> - Resident Resident Name: Nomi Connolly - ED Attending Attestation I have performed the following: I have examined & evaluated the patient, The case was reviewed & discussed with the resident, I agree w/resident's findings & plan, Exceptions are as noted - Medical Decision Making 10/21/18 18:23 I, Dr. Cherrie Cotter, DO, attest that this document has been prepared under my direction and personally reviewed by me in its entirety. I further attest, that it accurately reflects all work, treatment, procedures and medical decision -making performed by me. 10/21/18 19:57 a/p: 23yo female who works at [employer] presents for eval of 1 day of n/v and diarrhea today -about 10 episodes of n/v and diarrhea today- nbnb -crampy abd pain, epigastric burning -sister has similar symptoms as do other co-workers at work -suspect viral syndrome -will send labs, ivf hydration, nausea control -pt with hx of vertigo - unable to tolerate her meclizine today - will control nausea and then give meclizine -nontoxic in appearance 10/21/18 20:03 labs reviewed and stable 10/22/18 00:41 pt tolerated po feeling better requesting to go home <Cherrie Cotter - Last Filed: 10/22/18 00:41>
[2018-10-21] MEDS ORDERED: ACETAMINOPHEN 1000 MG/100 ML VIAL (NON FORMULARY) IVPB ONE (18:39)
[2018-10-21] MEDS ORDERED: FAMOTIDINE 20 MG/50 ML IVPB 20 MG/50 ML MG IVPB ONE ×2 (18:39→18:51)
[2018-10-21] MEDS ORDERED: ONDANSETRON 4 MG/2 ML VIAL IVPUSH ONE (18:39)
[2018-10-21] MEDS ORDERED: SODIUM CHLORIDE 1,000 ML IV STA (18:39)
[2018-10-21] MEDS ORDERED: MECLIZINE HCL 25 MG TABLET (FP) PO ONE (18:40)
[2018-10-21] MEDS ORDERED: MECLIZINE HCL 25 MG TABLET (FP) ONE (18:50)
[2018-10-21] MEDS ORDERED: ONDANSETRON 4 MG/2 ML VIAL ONE (18:51)
[2018-10-21] MEDS ORDERED: ACETAMINOPHEN INJECTION 100 ML IVPB ONE (18:51)
--- NOTE | 2018-10-21 19:06 | PDOC ---
History of Present Illness - General Chief Complaint: Vomiting/Diarrhea Stated Complaint: VOMITING/DIARRHEA Time Seen by Provider: 10/21/18 17:03 History Source: Patient Exam Limitations: No Limitations - History of Present Illness Initial Comments: 10/21/18 18:42 23 yo F with a hx of peripheral vertigo presents to the emergency department with nausea/vomiting/diarrhea and abdominal pain since yesterday. Per the patient, she had diarrhea 2 days ago. Yesterday, she had 10+ NBNB emesis episodes with concurrent epigastric pain that is 10/10, cramping, non radiating , with no relief with motrin. Per the patient, her sister has had vomiting and diarrhea throughout the week. Endorses the following: dizziness, fever, and chills. Denies the following: visual changes, ears/nose/throat pain/swelling, chest pain, SOB, dysuria, hematuria, hematochezia, and leg pain and swelling. States her LMP was 3 weeks ago. Shx: None Meds: meclizine Allergies: NKDA Social: Denies tobacco, alcohol, and substance abuse Past History - Past Medical History Allergies/Adverse Reactions: Allergies Allergy/AdvReac Type Severity Reaction Status Date / Time No Known Allergies Allergy Verified 07/21/18 22:12 Home Medications: Ambulatory Orders EPINEPHrine (EPI-PEN 0.3MG) [Epipen 0.3MG -] 0.3 mg IM ASDIR #2 pens 02/06/18 Meclizine HCl [Antivert -] 25 mg PO DAILY #30 tablet 09/13/18 Ondansetron [Zofran -] 4 mg PO TID PRN #9 tablet 10/21/18 Cancer: No COPD: No DVT: No GI Disorders: No Hypercholesterolemia: No Lung CA: No - Surgical History Appendectomy: No Gastric Stapling: No GI Surgery: No Neurologic Surgery: No - Immunization History Immunization Up to Date: No - Suicide/Smoking/Psychosocial Hx Smoking History: Never smoked Have you smoked in the past 12 months: No Information on smoking cessation initiated: No Hx Alcohol Use: No Drug/Substance Use Hx: No Substance Use Type: None Review of Systems - Review of Systems Able to Perform ROS?: Yes Is the patient limited Iraqi proficient: No Constitutional: Yes: Chills, Fever, Weakness. No: Diaphoresis HEENTM: No: Eye Pain, Recent change in vision, Nose Pain, Throat Pain, Throat Swelling, Mouth Pain Respiratory: No: Cough, Shortness of Breath, SOB with Exertion, Hemoptysis Cardiac (ROS): No: Chest Pain, Lightheadedness, Palpitations, Syncope, Chest Tightness ABD/GI: Yes: Diarrhea, Nausea, Poor Appetite, Poor Fluid Intake, Vomiting, Abdominal cramping. No: Constipated, Rectal Bleeding, Tarry Stools : No: Burning, Dysuria, Hematuria, Urgency Musculoskeletal: No: Back Pain, Joint Pain, Neck Pain Integumentary: No: Erythema, Flushing, Lesions, Pruritus, Rash Neurological: No: Headache, Numbness, Tingling, Tremors, Ataxia, Dizziness Psychiatric: No: Change in Appetite Endocrine: No: Unexplained Weight Gain Hematologic/Lymphatic: No: Anemia *Physical Exam - Vital Signs Last Vital Signs Temp Pulse Resp BP Pulse Ox 99.1 F 77 18 118/64 99 10/21/18 17:03 10/21/18 17:03 10/21/18 17:03 10/21/18 17:03 10/21/18 17:03 - Physical Exam General Appearance: Yes: Nourished, Appropriately Dressed. No: Apparent Distress, Intoxicated HEENT: positive: EOMI, [place], Normal Voice, Symmetrical, Pharynx Normal, Hearing Grossly Normal. negative: Pale Conjunctivae, Scleral Icterus (R), Scleral Icterus (L), Muffled/Hoarse voice, Pharyngeal Erythema, Tonsillar Exudate, Tonsillar Erythema, Nasal Congestion, Rhinorrhea, Sinus Tenderness, Excessive drooling Neck: positive: Trachea midline, Supple. negative: Tender, Lymphadenopathy (R) , Lymphadenopathy (L), Tender lateral, Tender midline Respiratory/Chest: positive: Lungs Clear, Normal Breath Sounds. negative: Chest Tender, Respiratory Distress, Accessory Muscle Use, Crackles, Rales, Rhonchi, Stridor, Wheezing, Hyperresonant Cardiovascular: positive: Regular Rhythm, Regular Rate, S1, S2. negative: Systolic Murmur Gastrointestinal/Abdominal: positive: Normal Bowel Sounds, Tender (epigastric region), Flat, Soft. negative: Guarding, Rebound, Hernia, Mass Lymphatic: negative: Adenopathy Musculoskeletal: positive: Normal Inspection. negative: CVA Tenderness, Vertebral Tenderness Extremity: positive: Normal Capillary Refill, Normal Inspection, Normal Range of Motion. 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 intact, Fully Oriented, Alert, Normal Mood/ Affect, Normal Response, Motor Strength 5/5 Moderate Sedation - Procedure Monitoring Vital Signs: Procedure Monitoring Vital Signs Temperature 99.1 F 10/21/18 17:03 Pulse Rate 77 10/21/18 17:03 Respiratory Rate 18 10/21/18 17:03 Blood Pressure 118/64 10/21/18 17:03 O2 Sat by Pulse Oximetry (%) 99 10/21/18 17:03 ED Treatment Course - LABORATORY CBC & Chemistry Diagram: 10/21/18 17:15 10/21/18 17:01 - ADDITIONAL ORDERS Additional order review: Laboratory Results 10/21/18 10/21/18 17:01 17:01 Sodium 137 Potassium 3.7 Chloride 103 Carbon Dioxide 26 Anion Gap 8 BUN 8 Creatinine 0.7 Creat Clearance w eGFR > 60 Random Glucose 81 Calcium 9.3 Total Bilirubin 0.3 AST 23 ALT 37 Alkaline Phosphatase 71 Total Protein 8.3 H Albumin 4.2 Urine Color Yellow Urine Appearance Slcloudy Urine pH 5.0 D Ur Specific [place] 1.025 Urine Protein Negative Urine Glucose (UA) Negative Urine Ketones 1+ H Urine Blood Negative Urine Nitrite Negative Urine Bilirubin Negative Urine Urobilinogen Negative Ur Leukocyte Esterase Trace Urine WBC (Auto) 2 Urine RBC (Auto) 2 Ur Epithelial Cells Moderate Hyaline Casts 2 Urine Mucus Rare Urine HCG, Qual Negative 10/21/18 17:15 RBC 4.51 MCV 86.2 MCHC 34.8 RDW 14.0 MPV 8.0 Neutrophils % 63.2 Lymphocytes % 29.0 Monocytes % 6.5 Eosinophils % 0.9 Basophils % 0.4 Medical Decision Making - Medical Decision Making 10/21/18 19:13 23 yo F with a hx of peripheral vertigo presents to the emergency department with nausea/vomiting/diarrhea and abdominal pain since yesterday. Initial vitals: Initial Vital Signs Temp Pulse Resp BP Pulse Ox 99.1 F 77 18 118/64 99 10/21/18 17:03 10/21/18 17:03 10/21/18 17:03 10/21/18 17:03 10/21/18 17:03 Work up: viral gastroenteritis vs colitis vs GERD vs gastritis vs pancreatitis vs hyperemesis gravidarum vs UTI Interventions: IVF, zofran, meclizine, pepcid, tylenol Laboratory Tests 10/21/18 10/21/18 10/21/18 17:01 17:01 17:15 WBC 8.2 RBC 4.51 Hgb 13.5 Hct 38.8 MCV 86.2 MCH 30.0 MCHC 34.8 RDW 14.0 Plt Count 319 MPV 8.0 Absolute Neuts (auto) 5.2 Neutrophils % 63.2 Lymphocytes % 29.0 Monocytes % 6.5 Eosinophils % 0.9 Basophils % 0.4 Nucleated RBC % 0 Sodium 137 Potassium 3.7 Chloride 103 Carbon Dioxide 26 Anion Gap 8 BUN 8 Creatinine 0.7 Creat Clearance w eGFR > 60 Random Glucose 81 Calcium 9.3 Total Bilirubin 0.3 AST 23 ALT 37 Alkaline Phosphatase 71 Total Protein 8.3 H Albumin 4.2 Urine Color Yellow Urine Appearance Slcloudy Urine pH 5.0 D Ur Specific [place] 1.025 Urine Protein Negative Urine Glucose (UA) Negative Urine Ketones 1+ H Urine Blood Negative Urine Nitrite Negative Urine Bilirubin Negative Urine Urobilinogen Negative Ur Leukocyte Esterase Trace Urine WBC (Auto) 2 Urine RBC (Auto) 2 Ur Epithelial Cells Moderate Hyaline Casts 2 Urine Mucus Rare Urine HCG, Qual Negative *DC/Admit/Observation/Transfer Diagnosis at time of Disposition: Vomiting and diarrhea - Discharge Dispostion Condition at time of disposition: Stable - Prescriptions Prescriptions: Ondansetron [Zofran -] 4 mg PO TID PRN #9 tablet PRN Reason: Nausea - Referrals Referrals: Luis Antonio Pandya MD [Primary Care Provider] - - Patient Instructions Printed Discharge Instructions: DI for Vomiting -- Adult Additional Instructions: you were seen in the emergency department for nausea and vomiting. your labs were within normal limits and you improved with medication. stay hydrated and use liquid foods initially for diet. please take the medicine as prescribed when needed. please follow up with Dr. Pandya in 1 week for follow up care and management. please return to the emergency department if you develop worsening symptoms or new concerning symptoms such as uncontrollable nausea and vomiting, fever, and blood in the diarrhea and vomit. thank you. - Post Discharge Activity Forms/Work/School Notes: Back to Work
[2018-10-21 19:31] LABS: LIPASE 112 U/L (73-393)
== END 2018-10-21 20:56 | disposition home or self-care (01) ==
LOC: JER 16:53
PROC: 3E033GC Introduction of Other Therapeutic Substance into Peripheral Vein, Percutaneous Approach (ICD-10-PCS; principal; 2018-10-21)
PROC: 3E033GC Introduction of Other Therapeutic Substance into Peripheral Vein, Percutaneous Approach (ICD-10-PCS; 2018-10-21)
PROC: 3E033NZ Introduction of Analgesics, Hypnotics, Sedatives into Peripheral Vein, Percutaneous Approach (ICD-10-PCS; 2018-10-21)
DX: R11.2 Nausea with vomiting, unspecified (principal); R19.7 Diarrhea, unspecified; H81.399 Other peripheral vertigo, unspecified ear
CPT/HCPCS: 36415; 80053; 81003; 81015; 83690; 84703; 85025; 99281-25; J0131; J7030

== ENCOUNTER 2019-01-19 11:20 | Emergency (ER) | payer OTHER ==
[2019-01-19 11:37] VITALS: BP 124/74; PULSE 62; TEMP 98.6; BMI 27.4
[2019-01-19] MEDS ORDERED: ONDANSETRON 4 MG/2 ML VIAL IVPUSH ONE (12:34)
[2019-01-19] MEDS ORDERED: IBUPROFEN 800 MG/8 ML IJ IVPB ONE ×2 (12:34→12:38)
[2019-01-19] MEDS ORDERED: ONDANSETRON 4 MG/2 ML VIAL ONE (12:38)
[2019-01-19 12:59] LABS: BASO % 0.4 % (0-2.0); EOS % 0.4 % (0-4.5); HEMATOCRIT 42.4 % (32.4-45.2); HEMOGLOBIN 14.3 GM/dL (10.7-15.3); LYMPH % 11.1 % (8-40); MCH 29.6 pg (25.7-33.7); MCHC 33.8 g/dl (32.0-36.0); MEAN CELL VOLUME 87.5 fl (80-96); MEAN PLT VOLUME 7.9 fl (7.5-11.1); MONO % 4.1 % (3.8-10.2); PLATELET COUNT 309 K/MM3 (134-434); RBC 4.84 M/mm3 (3.60-5.2); RDW 15.5 % (11.6-15.6); WHITE BLOOD COUNT 10.4 K/mm3 (4.0-10.0)
[2019-01-19 13:31] LABS: ALBUMIN 4.3 g/dl (3.4-5.0); ALK PHOS 73 U/L (45-117); ANION GAP 6 MMOL/L (8-16); BILIRUBIN,TOTAL 0.3 mg/dL (0.2-1); BLOOD UREA NITROGEN 9 mg/dL (7-18); CALCIUM 9.2 mg/dL (8.5-10.1); CHLORIDE 106 mmol/L (98-107); CO2 28 mmol/L (21-32); CREATININE 0.7 mg/dL (0.55-1.3); GLUCOSE,RANDOM 100 mg/dL (74-106); POTASSIUM 4.1 mmol/L (3.5-5.1); SGOT/AST 23 U/L (15-37); SGPT/ALT 23 U/L (13-61); SODIUM 140 mmol/L (136-145); TOT PROT 8.4 g/dl (6.4-8.2)
== END 2019-01-19 14:40 | disposition home or self-care (01) ==
LOC: JER 11:20
PROC: 3E033GC Introduction of Other Therapeutic Substance into Peripheral Vein, Percutaneous Approach (ICD-10-PCS; principal; 2019-01-19)
DX: N94.6 Dysmenorrhea, unspecified (principal)
CPT/HCPCS: 36415; 80053; 84703; 85025; 96374; 96375; 99281-25

== ENCOUNTER 2019-03-02 02:29 | Emergency (ER) | payer OTHER | END 2019-03-02 07:01 | disposition home or self-care (01) | LOC: JER 02:29 ==

== ENCOUNTER 2019-03-13 09:51 | Emergency (ER) | payer OTHER | END 2019-03-13 11:44 | disposition home or self-care (01) | LOC: JERFT 09:51 ==

== ENCOUNTER 2020-06-13 11:30 | Inpatient (IN) | payer OTHER ==
[2020-06-13 12:55] LABS: BASO % 0.4 % (0-2.0); EOS % 0.4 % (0-4.5); HEMOGLOBIN 12.2 GM/dL (10.7-15.3); LYMPH % 15.6 % (8-40); MCH 30.1 pg (25.7-33.7); MCHC 33.9 g/dl (32.0-36.0); MEAN CELL VOLUME 88.7 fl (80-96); MEAN PLT VOLUME 8.2 fl (7.5-11.1); MONO % 6.9 % (3.8-10.2); NEUT % 76.7 % (42.8-82.8); PLATELET COUNT 230 K/MM3 (134-434); RBC 4.06 M/mm3 (3.60-5.2); RDW 14.3 % (11.6-15.6); WHITE BLOOD COUNT 9.8 K/mm3 (4.0-10.0)
[2020-06-13 13:11] LABS: INR 0.85 (0.83-1.09)
[2020-06-13 13:14] VITALS: BMI 39.7
[2020-06-13 13:14] LABS: ACTIVATED PTT 24.6 SECONDS (25.2-36.5)
[2020-06-13] MEDS ORDERED: PROMETHAZINE HCL 25 MG/1 ML VIAL IVPB ONE (13:20)
[2020-06-13] MEDS ORDERED: ELECTROLYTE-148 SOLN 1,000 ML IV SCH (13:30)
[2020-06-13 13:46] LABS: BLOOD UREA NITROGEN 11.7 mg/dL (7-18); CREATININE 0.5 mg/dL (0.55-1.3)
[2020-06-13 13:47] LABS: CALCIUM 8.9 mg/dL (8.5-10.1); POTASSIUM 4.1 mmol/L (3.5-5.1)
--- NOTE | 2020-06-13 23:27 | PD.OB.PROG ---
Past Medical History - Primary Care Physician Documenting Provider Type: Laborist - Admission Chief Complaint: for cervidil induction History Source: Patient Limitations to Obtaining History: No Limitations - Nursing Documentation Maternal Triage Index: Maternal Triage Index ( Priority 5, Requesting MFTI) Hemorrhage Risk Assessment: Risk Level Low Risk High Level Risk Factors for None Hemorrhage Medium Level Risk Factors for None of the above Hemorrhage Low Level Risk Factors for No previous uterine incis,Blood Pregnaancy, Hemorrhage Four (4) or less previous,No known bleeding,No history of PPH,None of the above Nursing Documentation Reviewed: Yes - Past Medical History DIRECTOR OF SEARCH ENGINE OPTIMIZATION: Denies/None Cardio/Vascular: Denies/None Pulmonary: Denies/None Gastrointestinal: Denies/None Hepatobiliary: Denies/None Renal/: Denies/None ...: 1 ...Para: 0 ...Term: 0 ...: 0 ...Spon : 0 ...Induced : 0 ...Living Children: 0 ...Multiple Gestation: 0 ...LMP: 09/14/19 ... Weeks Gestation by Dates: 38.5 ...EDC by Dates: 06/22/20 ...EDC by Sono: 06/11/20 Heme/Onc: Denies/None Infectious Disease: Denies/None Psych: Denies/None Musculoskeletal: Denies/None Rheumatology: Denies/None ENT: Denies/None Endocrine: Denies/None Dermatology: Denies/None - Past Surgical History Past Surgical History: No: None, AAA Repair, AICD, Amputation, Appendectomy, Arthrosocopy, AV Fistula/Graft, Bariatric Surgery, Breast Biopsy, Bypass, CABG, Carotid Endarterectomy, Cataract Removal, Cholecystectomy, Colectomy, Colonoscopy, Colostomy, Craniotomy, , Cystectomy, Hernia Repair, Hysterectomy, Ileal Conduit, Ileosotomy, Joint Replacement, Kidney Transplant, Laminectomy, Liver Transplant, Mastectomy, Nephrectomy, Oopherectomy, Orchi ectomy, Permanent Pacemaker, Prostatectomy, Splenectomy, Stent, Thoracotomy, TURP, Tonsillectomy, Tubal Ligation, Upper Endoscopy, Valve Replacement, Vasectomy, Vein Stripping/Ligation - Advance Directives Advance Directives: Yes: Living Will - Smoking History Smoking history: Never smoked Have you smoked in the past 12 months: No - Alcohol/Substance Use Hx Alcohol Use: No History of Substance Use: reports: None - Social History Usual Living Arrangement: With Significant Other Do you think of yourself as: Straight/Heterosexual ADL: Independent History of Recent Travel: No Review of Systems - Review of Systems Constitutional: reports: No Symptoms Eyes: reports: No Symptoms HENT: reports: No Symptoms Neck: reports: No Symptoms Cardiovascular: reports: No Symptoms Respiratory: reports: No Symptoms Gastrointestinal: reports: No Symptoms Genitourinary: reports: No Symptoms Breasts: reports: No Symptoms Reported Musculoskeletal: reports: No Symptoms Integumentary: reports: No Symptoms Neurological: reports: No Symptoms Endocrine: reports: No Symptoms Hematology/Lymphatic: reports: No Symptoms Psychiatric: reports: No Symptoms Physical Exam - Obstetrical Vital Signs: Vital Signs Temperature 98.7 F 06/13/20 23:00 Pulse Rate 87 06/13/20 23:00 Respiratory Rate 18 06/13/20 23:00 Blood Pressure 104/54 L 06/13/20 23:00 O2 Sat by Pulse Oximetry (%) Constitutional: Yes: Well Nourished, No Distress, Calm Eyes: Yes: WNL, Conjunctiva Clear, EOM Intact HENT: Yes: WNL, Atraumatic, Normocephalic Neck: Yes: WNL, Supple, Trachea Midline Cardiovascular: Yes: WNL, Regular Rate and Rhythm Lungs: Clear to auscultation Breast(s): Yes: WNL - Abdominal Exam/OB Fundal Height: 40 Number of Fetuses: Single Contractions: Yes Regularity: Regular Intensity: Unaware Monitor Mode: External Heart Rate (range): 150 Heart Rate Location: [facility] Category: I Accelerations: Uniform Decelerations: None - Vaginal Exam/OB Vaginal Exam Deferred: Yes Vaginal Bleeding: No Speculum Exam: No Dilatation (cm): 1 Effacement (%): 30 Amniotic Membrane Status: Intact Presentation: Vertex/Position Station: -1 - Physical Exam Musculoskeletal: Yes: WNL Extremities: Yes: WNL Integumentary: Yes: WNL ...Motor Strength: WNL Psychiatric: Yes: WNL, Alert, Oriented - Labs Lab Results: CBC, BMP 06/13/20 12:30 06/13/20 12:30 Assessment/Plan for cervidil , placed
[2020-06-14] MEDS: BUTORPHANOL TARTRATE 1 MG/ML VIAL IVPB SCH ×2 (00:08→14:30)
[2020-06-14] MEDS ORDERED: DINOPROSTONE 10 MG VAGINAL SUPPOSITORY VG ONE ×2 (01:00→11:15)
--- NOTE | 2020-06-14 12:34 | PD.OB.PROG ---
Past Medical History - Primary Care Physician PCP:: Lakia Flood Documenting Provider Type: Laborist - Admission Chief Complaint: Induction, cervix unfavorable. History of Present Illness: Uneventful for induction. Limitations to Obtaining History: No Limitations - Nursing Documentation Maternal Triage Index: Maternal Triage Index ( Priority 5, Requesting MFTI) Hemorrhage Risk Assessment: Risk Level Low Risk High Level Risk Factors for None Hemorrhage Medium Level Risk Factors for None of the above Hemorrhage Low Level Risk Factors for No previous uterine incis,Blood Pregnaancy, Hemorrhage Four (4) or less previous,No known bleeding,No history of PPH,None of the above Nursing Documentation Reviewed: Yes - Past Medical History PASSPORT APPLICATION EXAMINER: Denies/None Cardio/Vascular: Denies/None Pulmonary: Denies/None Gastrointestinal: Denies/None Hepatobiliary: Denies/None Renal/: Denies/None ...: 1 ...Para: 0 ...Term: 0 ...: 0 ...Spon : 0 ...Induced : 0 ...Living Children: 0 ...Multiple Gestation: 0 ...LMP: 09/14/19 ... Weeks Gestation by Dates: 40.3 ...EDC by Dates: 06/22/20 ...EDC by Sono: 06/11/20 Heme/Onc: Denies/None Infectious Disease: Denies/None Psych: Denies/None Musculoskeletal: Denies/None Rheumatology: Denies/None ENT: Denies/None Endocrine: Denies/None Dermatology: Denies/None - Past Surgical History Past Surgical History: No: None, AAA Repair, AICD, Amputation, Appendectomy, Arthrosocopy, AV Fistula/Graft, Bariatric Surgery, Breast Biopsy, Bypass, CABG, Carotid Endarterectomy, Cataract Removal, Cholecystectomy, Colectomy, Colonoscopy, Colostomy, Craniotomy, , Cystectomy, Hernia Repair, Hysterectomy, Ileal Conduit, Ileosotomy, Joint Replacement, Kidney Transplant, Laminectomy, Liver Transplant, Mastectomy, Nephrectomy, Oopherectomy, Orchie ctomy, Permanent Pacemaker, Prostatectomy, Splenectomy, Stent, Thoracotomy, TURP, Tonsillectomy, Tubal Ligation, Upper Endoscopy, Valve Replacement, Vasectomy, Vein Stripping/Ligation - Advance Directives Advance Directives: Yes: Living Will - Smoking History Smoking history: Never smoked Have you smoked in the past 12 months: No - Alcohol/Substance Use Hx Alcohol Use: No History of Substance Use: reports: None - Social History ADL: Independent History of Recent Travel: No Review of Systems - Review of Systems Constitutional: reports: No Symptoms Eyes: reports: No Symptoms HENT: reports: No Symptoms Neck: reports: No Symptoms Cardiovascular: reports: No Symptoms Respiratory: reports: No Symptoms Gastrointestinal: reports: No Symptoms Genitourinary: reports: No Symptoms Breasts: reports: No Symptoms Reported Musculoskeletal: reports: No Symptoms Integumentary: reports: No Symptoms Neurological: reports: No Symptoms Endocrine: reports: No Symptoms Hematology/Lymphatic: reports: No Symptoms Psychiatric: reports: No Symptoms Physical Exam - Obstetrical Vital Signs: Vital Signs Temperature 98.9 F 06/14/20 08:00 Pulse Rate 80 06/14/20 09:00 Respiratory Rate 18 06/14/20 09:00 Blood Pressure 107/72 06/14/20 09:00 O2 Sat by Pulse Oximetry (%) Constitutional: Yes: Well Nourished, No Distress, Calm Eyes: Yes: WNL, Conjunctiva Clear, EOM Intact HENT: Yes: WNL, Atraumatic, Normocephalic Neck: Yes: WNL, Supple, Trachea Midline Cardiovascular: Yes: WNL, Regular Rate and Rhythm Lungs: Clear to auscultation Breast(s): Yes: WNL - Abdominal Exam/OB Fundal Height: 40 Number of Fetuses: Single Presentation: Vertex Contractions: No Heart Rate (range): 140 Heart Rate Location: [facility] Category: I Accelerations: Uniform Decelerations: None - Vaginal Exam/OB Vaginal Exam Deferred: No Dilatation (cm): 1 Effacement (%): 70 Presentation: Vertex/Position Station: -1 - Physical Exam Musculoskeletal: Yes: WNL Extremities: Yes: WNL Integumentary: Yes: WNL ...Motor Strength: WNL Psychiatric: Yes: WNL - Labs Lab Results: CBC, BMP 06/13/20 12:30 06/13/20 12:30 Problem List - Problems (1) Post-dates Code(s): O48.0 - POST-TERM Assessment/Plan Patient examined. Cervix is still unfavorable. Cervidil introduced. No complications.
[2020-06-14] MEDS ORDERED: AMPICILLIN SODIUM 2 GM VIAL ONE (15:38)
[2020-06-14] MEDS ORDERED: AMPICILLIN SODIUM 2 GM VIAL IVPB ONE (16:00)
--- NOTE | 2020-06-14 18:30 | HP ---
Past Medical History - Admission Chief Complaint: Oligo. Post dates History Source: Patient Limitations to Obtaining History: No Limitations - Past Medical History ...: 1 ...Para: 0 ...Term: 0 ...: 0 ...Spon : 0 ...Induced : 0 ...Living Children: 0 ...Multiple Gestation: 0 ...LMP: 09/14/19 ... Weeks Gestation by Dates: 40.3 ...EDC by Dates: 06/22/20 ...EDC by Sono: 06/11/20 - Past Surgical History Past Surgical History: No: None, AAA Repair, AICD, Amputation, Appendectomy, Arthrosocopy, AV Fistula/Graft, Bariatric Surgery, Breast Biopsy, Bypass, CABG, Carotid Endarterectomy, Cataract Removal, Cholecystectomy, Colectomy, Colonoscopy, Colostomy, Craniotomy, , Cystectomy, Hernia Repair, Hysterectomy, Ileal Conduit, Ileosotomy, Joint Replacement, Kidney Transplant, Laminectomy, Liver Transplant, Mastectomy, Nephrectomy, Oopherectomy, Orchiectomy, Permanent Pacemaker, Prostatectomy, Splenectomy, Stent, Thoracotomy, TURP, Tonsillectomy, Tubal Ligation, Upper Endoscopy, Valve Replacement, Vasectomy, Vein Stripping/Ligation - Advance Directives Advance Directives: Yes: Living Will - Smoking History Smoking history: Never smoked Have you smoked in the past 12 months: No - Alcohol/Substance Use Hx Alcohol Use: No History of Substance Use: reports: None - Social History ADL: Independent History of Recent Travel: No Home Medications - Allergies Allergies/Adverse Reactions: Allergies Allergy/AdvReac Type Severity Reaction Status Date / Time No Known Drug Allergies Allergy Verified 06/14/20 01:01 VINYL Allergy Uncoded 06/13/20 14:04 - Home Medications Home Medications: Ambulatory Orders Caplet 1 tab PO DAILY 06/13/20 Physical Exam - Maternity Vital Signs: Vital Signs Temperature 98.1 F 06/14/20 18:00 Pulse Rate 92 H 06/14/20 18:00 Respiratory Rate 18 06/14/20 18:00 Blood Pressure 126/80 06/14/20 18:00 O2 Sat by Pulse Oximetry (%) Constitutional: Yes: Well Nourished, No Distress - Abdominal Exam/OB Category: I - Vaginal Exam/OB Dilatation (cm): closed Effacement (%): 80 Amniotic Membrane Status: Intact - Physical Exam Psychiatric: Yes: WNL, Alert, Oriented - Labs Lab Results: CBC, BMP 06/13/20 12:30 06/13/20 12:30 Hemorrhage Risk Assessment - Risk Factors Risk Score: 0 Risk Level: Low Risk Problem List - Problems (1) Post-dates Problems reviewed: Yes Code(s): O48.0 - POST-TERM Assessment/Plan 40 + week Cat1 AMA Plan will dc cervdil and start pit later
[2020-06-14] MEDS ORDERED: OXYTOCIN 30 UNITS in 0.9% NS 30 UNIT/500 ML INFUS.BAG IVPB SCH (18:45)
[2020-06-14] MEDS: AMPICILLIN SODIUM 1 GM VIAL IVPB SCH (20:15)
[2020-06-14] MEDS ORDERED: AMPICILLIN SODIUM 1 GM VIAL ONE ×2 (20:20→23:05)
[2020-06-14] MEDS ORDERED: SODIUM CHLORIDE 100 ML IVPB ONE ×2 (20:21→23:05)
[2020-06-14] MEDS ORDERED: BUTORPHANOL TARTRATE 2 MG/ML VIAL ONE (22:11)
[2020-06-14] MEDS ORDERED: BUTORPHANOL TARTRATE 1 MG/ML VIAL IVPB SCH (22:15)
[2020-06-14] MEDS ORDERED: OXYTOCIN 30 UNITS in 0.9% NS 30 UNIT/500 ML INFUS.BAG IVPB ONE (23:05)
[2020-06-15] MEDS ORDERED: PCA PUMP NR ONE ×2 (02:07→09:19)
[2020-06-15] MEDS ORDERED: FENTANYL/BUPIVACAINE/NS/PF - PCEA - 50 ML DISP.SYRIN EP ONE ×4 (02:07→12:01)
[2020-06-15] MEDS: FENTANYL/BUPIVACAINE/NS/PF - PCEA - 50 ML DISP.SYRIN EP SCH ×2 (02:28→06:00)
[2020-06-15] MEDS ORDERED: NALOXONE HCL 0.4 MG/ML VIAL IVPUSH PRN (02:31)
[2020-06-15] MEDS ORDERED: SODIUM CHLORIDE 100 ML IVPB ONE (04:00)
[2020-06-15] MEDS: AMPICILLIN SODIUM 1 GM VIAL IVPB SCH ×4 (04:00→12:00)
[2020-06-15] MEDS ORDERED: AMPICILLIN SODIUM 1 GM VIAL ONE ×2 (04:00→07:51)
[2020-06-15] MEDS ORDERED: BUPIVACAINE HCL/PF 0.25% (2.5MG/ML) 10 ML VIAL ONE (04:36)
--- NOTE | 2020-06-15 10:23 | PN ---
Ante-Partal Exam - Subjective Vital Signs: Vital Signs Temperature 98.0 F 06/15/20 07:00 Pulse Rate 78 06/15/20 08:45 Respiratory Rate 18 06/15/20 08:45 Blood Pressure 135/56 L 06/15/20 08:45 O2 Sat by Pulse Oximetry (%) 99 06/15/20 08:45 Bleeding: No Headache: No Visual changes: No Right upper quadrant pain: No - Contractions Contractions: Yes Regularity: Regular Intensity: Mild/Mod Monitor Mode: External - Exam during Labor Variability: Moderate Heart Rate Location: [facility] Category: I Monitor Accelerations: Present Monitor Decelerations: None Exam: Vaginal Dilatation (cm): 6-7 Amniotic Membrane Status: Ruptured Amniotic Fluid: Clear
[2020-06-15] MEDS ORDERED: BUPIVACAINE HCL/PF 0.5% (5 MG/ML) 30 ML VIAL IJ ONE (12:10)
--- NOTE | 2020-06-15 14:46 | PN ---
Ante-Partal Exam - Subjective Subjective: Pt not progressing x 3 hours Vital Signs: Vital Signs Temperature 98.0 F 06/15/20 07:00 Pulse Rate 115 H 06/15/20 14:00 Respiratory Rate 18 06/15/20 14:00 Blood Pressure 130/81 06/15/20 14:00 O2 Sat by Pulse Oximetry (%) 99 06/15/20 14:00 Bleeding: No Headache: No Visual changes: No Right upper quadrant pain: No - Contractions Contractions: Yes Regularity: Irregular Monitor Mode: External - Exam during Labor Variability: Moderate Category: I Exam: Vaginal Dilatation (cm): 9 Presentation: Vertex Station: 0 - Intrapartum Hemorrhage Risk Risk Score: 0 Risk Level: Low Risk - Assessment/Plan Assessment/Plan: Failure to progrss pt not moving after 3 hours cat 1 Plan CS Notify anesthesia nottify neonatolosist
[2020-06-15] MEDS ORDERED: ceFAZolin SODIUM 1 GM VIAL ONE (15:20)
[2020-06-15] MEDS ORDERED: OXYTOCIN 10 UNITS/ML VIAL ONE ×3 (15:29→15:36)
[2020-06-15] MEDS ORDERED: ONDANSETRON 4 MG/2 ML VIAL IVPUSH PRN (16:22)
[2020-06-15 16:42] LABS: CORD BASE EXCESS -5.2 mmol/L (0-2); CORD HCO3 19.5 mmHg (20-29); CORD PCO2 35.9 mmHg (30-78); CORD pH 7.352 (7.14-7.44)
[2020-06-15 16:47] LABS: CORD BASE EXCESS -5.9 mmol/L (0-2); CORD HCO3 22.1 mmHg (20-29); CORD PCO2 52.4 mmHg (30-78); CORD pH 7.242 (7.14-7.44)
[2020-06-15] MEDS ORDERED: BENZOCAINE 28 GM HEMORRHOIDAL OINTMENT PR PRN (17:49)
[2020-06-15] MEDS ORDERED: oxyCODONE HCL 5 MG TABLET PO PRN ×2 (17:49)
[2020-06-15] MEDS ORDERED: WITCH HAZEL 50% (TUCKS) 40 PAD/JAR PAD TP PRN (17:49)
[2020-06-15] MEDS ORDERED: METHYLERGONOVINE MALEATE 0.2 MG/1 ML AMP IM PRN (17:49)
[2020-06-15] MEDS ORDERED: BENZOCAINE 20% 57 GM BOTTLE TP PRN (17:49)
[2020-06-15] MEDS ORDERED: HYDROmorphone HCL 2 MG TABLET PO PRN (17:49)
[2020-06-15] MEDS: IBUPROFEN 800 MG/8 ML IJ IVPB PRN (18:04)
[2020-06-15] MEDS: diphenhydrAMINE HCL 25 MG CAPSULE (FP) PO PRN (20:52)
--- NOTE | 2020-06-15 23:49 | OP ---
Operative Note - Note: Operative Date: 06/15/20 Pre-Operative Diagnosis: failure to progress. oligohydramnious. postdates Operation: Primary low transverse section Findings: live male infant Post-Operative Diagnosis: Same as Pre-op Surgeon: Lakia Flood Appeals Reviewer Veteran: Kong Pierson Estimated Blood Loss (mls): 750 Operative Report Dictated: Yes
[2020-06-16] MEDS: AMPICILLIN SODIUM 1 GM VIAL IVPB SCH (03:26)
[2020-06-16] MEDS: IBUPROFEN 800 MG/8 ML IJ IVPB PRN ×2 (03:32→10:19)
[2020-06-16] MEDS: diphenhydrAMINE HCL 25 MG CAPSULE (FP) PO PRN (03:36)
--- NOTE | 2020-06-16 08:00 | PN ---
Post Note - Post Date of Delivery: 06/15/20 Post Day: 1 Vital Signs: Vital Signs - 24 hr 06/15/20 06/15/20 06/15/20 08:00 08:15 08:30 Temperature Pulse Rate 72 78 99 H Respiratory 18 18 18 Rate Blood Pressure 114/70 125/66 128/82 O2 Sat by Pulse 99 99 99 Oximetry (%) 06/15/20 06/15/20 06/15/20 08:45 09:00 09:15 Temperature Pulse Rate 78 90 78 Respiratory 18 18 18 Rate Blood Pressure 135/56 L 120/65 125/67 O2 Sat by Pulse 99 99 100 Oximetry (%) 06/15/20 06/15/20 06/15/20 09:30 09:45 11:30 Temperature Pulse Rate 72 90 88 Respiratory 18 18 18 Rate Blood Pressure 121/67 129/73 131/80 O2 Sat by Pulse 99 99 100 Oximetry (%) 06/15/20 06/15/20 06/15/20 11:45 12:00 12:15 Temperature Pulse Rate 78 78 73 Respiratory 18 18 18 Rate Blood Pressure 127/66 121/66 119/65 O2 Sat by Pulse 99 99 99 Oximetry (%) 06/15/20 06/15/20 06/15/20 12:30 12:45 13:00 Temperature Pulse Rate 84 82 76 Respiratory 18 18 18 Rate Blood Pressure 127/75 125/66 127/78 O2 Sat by Pulse 99 99 99 Oximetry (%) 06/15/20 06/15/20 06/15/20 13:15 13:30 13:45 Temperature Pulse Rate 82 82 90 Respiratory 18 18 18 Rate Blood Pressure 121/80 129/76 120/75 O2 Sat by Pulse 99 99 99 Oximetry (%) 06/15/20 06/15/20 06/15/20 14:00 14:15 14:30 Temperature 99.0 F Pulse Rate 115 H 101 H 114 H Respiratory 18 18 18 Rate Blood Pressure 130/81 129/81 134/81 O2 Sat by Pulse 99 99 99 Oximetry (%) 06/15/20 06/15/20 06/15/20 14:45 16:10 16:25 Temperature 98.2 F Pulse Rate 109 H 100 H 94 H Respiratory 19 20 20 Rate Blood Pressure 131/81 113/57 L 136/77 O2 Sat by Pulse 99 97 94 L Oximetry (%) 06/15/20 06/15/20 06/15/20 16:40 16:55 17:54 Temperature 98.2 F 98.0 F Pulse Rate 90 88 89 Respiratory 22 H 19 20 Rate Blood Pressure 121/70 121/65 135/83 O2 Sat by Pulse 96 95 Oximetry (%) 06/15/20 06/15/20 06/15/20 18:00 19:00 20:00 Temperature Pulse Rate Respiratory 20 20 20 Rate Blood Pressure O2 Sat by Pulse Oximetry (%) 06/15/20 06/15/20 06/15/20 21:00 21:34 22:00 Temperature 98 F Pulse Rate 78 Respiratory 20 20 20 Rate Blood Pressure 113/70 O2 Sat by Pulse 96 Oximetry (%) 06/15/20 06/16/20 06/16/20 23:00 00:00 01:00 Temperature Pulse Rate Respiratory 20 20 20 Rate Blood Pressure O2 Sat by Pulse Oximetry (%) 06/16/20 06/16/20 06/16/20 01:55 02:00 03:00 Temperature 98.4 F Pulse Rate 87 Respiratory 20 20 20 Rate Blood Pressure 109/68 O2 Sat by Pulse 96 Oximetry (%) 06/16/20 06/16/20 06/16/20 04:00 05:00 06:00 Temperature 98 F Pulse Rate 88 Respiratory 20 20 20 Rate Blood Pressure 92/44 L O2 Sat by Pulse 95 Oximetry (%) 06/16/20 07:00 Temperature Pulse Rate Respiratory 20 Rate Blood Pressure O2 Sat by Pulse Oximetry (%) Labs: Laboratory Results - last 24 hr 06/15/20 06/15/20 15:30 15:30 Cord Blood pH 7.242 7.352 Cord Blood PCO2 52.4 35.9 Cord Blood PO2 19.4 31.0 Cord Blood HCO3 22.1 19.5 L Cord Base Excess -5.900 L -5.200 L - Subjective Subjective: No Complaints - Objective Afebrile: Yes Breast: Not engorged Abdomen: Soft, Non-tender Uterus: Fundus firm Vagina: Scant lochia Extremities: Non-tender - Assessment/Plan (1) Post-dates Assessment: Other (pod1 sp cs) Plan: Routine Care
[2020-06-16 08:56] LABS: HEMOGLOBIN 10.4 GM/dL (10.7-15.3); MCH 29.6 pg (25.7-33.7); MCHC 33.5 g/dl (32.0-36.0); MEAN CELL VOLUME 88.3 fl (80-96); MEAN PLT VOLUME 8.2 fl (7.5-11.1); PLATELET COUNT 172 K/MM3 (134-434); RBC 3.51 M/mm3 (3.60-5.2); RDW 14.2 % (11.6-15.6); WHITE BLOOD COUNT 14.3 K/mm3 (4.0-10.0)
--- NOTE | 2020-06-16 10:55 | PN ---
Progress Note (short form) - Note Progress Note: Anesthesiologist post op note POD#1 S/P under Epidural with duramorph. VSS. Ambulating. Tolerating po. Pain under control, scale 2-3/10. No apparent post anesthesia complications.
[2020-06-16] MEDS: SIMETHICONE 80 MG TAB.CHEW (FP) PO PRN ×2 (16:01→20:36)
[2020-06-16] MEDS: IBUPROFEN 600 MG TABLET (FP) PO PRN ×2 (16:01→20:37)
[2020-06-16] MEDS ORDERED: BISACODYL 10 MG SUPP.RECT PR PRN (17:49)
[2020-06-16] MEDS: ACETAMINOPHEN 325 MG TABLET (FP) PO PRN (20:36)
[2020-06-17] MEDS: SIMETHICONE 80 MG TAB.CHEW (FP) PO PRN ×2 (01:41→20:31)
[2020-06-17] MEDS: ACETAMINOPHEN 325 MG TABLET (FP) PO PRN ×3 (01:42→20:32)
[2020-06-17] MEDS: IBUPROFEN 600 MG TABLET (FP) PO PRN ×3 (01:43→20:31)
--- NOTE | 2020-06-17 15:39 | PN ---
Post Progress Note - Subjective Subjective: 24 yo Para 1 status post primary , seen and evaluated. Doing well. Post Day: 2 Type of Delivery: Primary C/S Vital Signs: Vital Signs Temperature 98.0 F 06/17/20 10:00 Pulse Rate 106 H 06/17/20 10:00 Respiratory Rate 18 06/17/20 10:00 Blood Pressure 118/76 06/17/20 10:00 O2 Sat by Pulse Oximetry (%) 98 06/16/20 21:00 Breast Exam: Yes: Soft Uterus: Yes: Fundus Firm Incision: Yes: Other (Steri strips in place) Abdomen/GI: Yes: Abdomen soft, Tolerating PO Extremities: Yes: Calves non-tender Activity: Ambulating - Labs Labs: CBC WBC 14.3 K/mm3 (4.0-10.0) H 06/16/20 08:11 RBC 3.51 M/mm3 (3.60-5.2) L 06/16/20 08:11 Hgb 10.4 GM/dL (10.7-15.3) L 06/16/20 08:11 Hct 31.0 % (32.4-45.2) L 06/16/20 08:11 MCV 88.3 fl (80-96) 06/16/20 08:11 MCH 29.6 pg (25.7-33.7) 06/16/20 08:11 MCHC 33.5 g/dl (32.0-36.0) 06/16/20 08:11 RDW 14.2 % (11.6-15.6) 06/16/20 08:11 Plt Count 172 K/MM3 (134-434) D 06/16/20 08:11 MPV 8.2 fl (7.5-11.1) 06/16/20 08:11 Absolute Neuts (auto) 7.5 K/mm3 (1.5-8.0) 06/13/20 12:30 Neutrophils % 76.7 % (42.8-82.8) 06/13/20 12:30 Lymphocytes % 15.6 % (8-40) D 06/13/20 12:30 Monocytes % 6.9 % (3.8-10.2) 06/13/20 12:30 Eosinophils % 0.4 % (0-4.5) 06/13/20 12:30 Basophils % 0.4 % (0-2.0) 06/13/20 12:30 Nucleated RBC % 0 % (0-0) 06/13/20 12:30 Problem List - Problems (1) Status post primary low transverse section Code(s): Z98.891 - HISTORY OF UTERINE SCAR FROM PREVIOUS SURGERY Assessment/Plan Status post primary Low Transverse Ambulation Analgesia as needed Continue post op care
[2020-06-17] MEDS ORDERED: SENNOSIDES/DOCUSATE COMBO (SENNA PLUS) TABLET (UD) PO PRN (22:00)
[2020-06-17 23:10] VITALS: TEMP 98.1
[2020-06-18] MEDS: IBUPROFEN 600 MG TABLET (FP) PO PRN (05:15)
[2020-06-18] MEDS: ACETAMINOPHEN 325 MG TABLET (FP) PO PRN (05:15)
[2020-06-18 08:27] LABS: HEMATOCRIT 28.7 % (32.4-45.2); HEMOGLOBIN 9.6 GM/dL (10.7-15.3); MCH 29.5 pg (25.7-33.7); MCHC 33.5 g/dl (32.0-36.0); MEAN CELL VOLUME 88.2 fl (80-96); PLATELET COUNT 207 K/MM3 (134-434); RBC 3.25 M/mm3 (3.60-5.2); RDW 14.5 % (11.6-15.6); WHITE BLOOD COUNT 7.5 K/mm3 (4.0-10.0)
--- NOTE | 2020-06-18 11:33 | DS ---
Physical Exam-MEDICAL CLAIMS SPECIALIST Vital Signs: Vital Signs Temperature 98.1 F 06/17/20 22:00 Pulse Rate 89 06/17/20 22:00 Respiratory Rate 18 06/17/20 22:00 Blood Pressure 117/80 06/17/20 22:00 O2 Sat by Pulse Oximetry (%) 98 06/17/20 22:00 Constitutional: Yes: Well Nourished, No Distress Labs: CBC, BMP 06/18/20 07:42 06/13/20 12:30 Delivery - Delivery Type of Anesthesia: Epidural Episiotomy/Laceration: None EBL (cc): 700 Delivery, Single - Stages of Labor Date 1st Stage Initiatied: 06/14/20 Time 1st Stage Initiated: 22:00 Date of Delivery: 06/15/20 Time of Delivery: 15:29 Time Placenta Delivered: 15:30 - Condition of Infant It Security Administrator/Yoke Setter Present: Yes Name: Dionne Pineda Infant Gender: Male Weight: 7 lb 6 oz Position: OT Total Hours ROM (Hrs/Mins): 6 hrs and 15 min - 1 Minute Total Score: 9 5 Minutes Total Score: 9 - Feeding Plan Initial Plan: Elected not to breastfeed exclusively throughout hospitalization Discharge Summary Problems reviewed: Yes Reason For Visit: INDUCTION OF LABOR Current Active Problems Post-dates (Acute) Status post primary low transverse section (Acute) Procedures: Principal: section Condition: Good - Instructions Diet, Activity, Other Instructions: Physical activity Resume your normal everyday activity as tolerated no heavy lifting or exercise until seen by your surgeon. You may walk unlimited ines of and climb stairs. You may resume driving the car when you feel safe and comfortable behind the wheel. No sexual activity as instructed. Wound care If you have a bandage, leave it on, and keep dry for 48-72 hours. After that time discard the outer bandage. If they are tapes on the skin under the out of bandage leave them in place. They will peel off in the next 7 to 10 days. Do Not Peel them off. You may shower the day after surgery. If there are tapes present on the skin, you may shower over them. Diet There are no dietary restrictions. Eat healthy, high-fiber foods. Drink 6 to 8 glasses of liquid each day. This will assist in keeping your bowels are regular. Pain management You may take Tylenol or acetaminophen or Ibuprofen (for example, Motrin, Advil etc.) from my pain prescription medication is ordered should be taken as prescribed for moderate to severe pain. Call MD for any of the following: Severe pain not relieved by medication Fever of 101 or higher Excessive bleeding or drainage on dressing Inability to urinate Referrals: Lakia Flood MD [Staff Physician] - Disposition: HOME - Home Medications Comprehensive Discharge Medication List: Ambulatory Orders Caplet 1 tab PO DAILY 06/13/20 Ibuprofen [Motrin -] 600 mg PO QID #28 tablet 06/18/20
[2020-06-18 12:11] VITALS: BP 144/87; PULSE 76
--- NOTE | 2020-06-21 09:38 | OP ---
DATE OF OPERATION: 06/15/2020 PREOPERATIVE DIAGNOSIS: Failure to progress, oligohydramnios and postdates. OPERATION: Primary low transverse section. POSTOPERATIVE DIAGNOSIS: Live male infant. SURGEON: Mirna Flood MD ANIMAL GENETICIST: DREAD Noble ANESTHESIA: Epidural. ESTIMATED BLOOD LOSS: 750 mL. PROCEDURE: Patient was taken to the operating room, placed in the supine position, prepped and draped in the usual sterile fashion. Timeout was performed in accordance with hospital regulation. Pfannenstiel skin incision was made with a scalpel. Cautery was then used to go through the layers of the abdominal wall to the level of the fascia. Fascia was cut in the midline. Cautery was then used to open the fascia in smiling fashion. Sukhi was then used to bluntly and sharply dissect the rectus muscle off the fascia. Muscle was split in the midline. Peritoneal cavity was then entered and carried up and downward. Bladder retractor was then placed. Scalpel was then used to make a low transverse uterine incision. Incision was carried up with use of bandage scissors. A live male was delivered in OT position. Nose and mouth suctioning performed. Shoulders were delivered without difficulty. Cord was clamped and cut. Cord blood obtained. Cord pH obtained. Infant was handed to the industrial maintenance instructor. Uterus exteriorized. Placenta was manually extracted from the uterus. Uterus and uterine incision were then cleaned with clean lap pads. Uterine incision was closed using 0 Biosyn suture, first layer continuous interlocking, second layer imbricating the first layer. Hemostasis was achieved. Uterus interiorized. Abdominal cavity cleaned with clean lap pads. Peritoneum closed using 0 Biosyn suture. Fascia was then closed using 0 Vicryl suture in 2 parts. Skin was then closed using 3-0 Vicryl suture after subcutaneous was approximated using 0 Biosyn suture. Wound was washed and dressed. Steri-Strips placed. The patient tolerated the procedure well. Estimated blood loss 750 mL. MIRNA FLOOD M.D. [id number]
--- NOTE | 2020-06-22 12:54 | PATH ---
Surgical Pathology Report Patient Name: YONIS PIMENTEL Med. Rec. 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 Specimen(s) Received A: PLACENTA B: FIBROID Clinical History Primary , myomectomy Final Diagnosis A. PLACENTA: THIRD TRIMESTER PLACENTA SHOWING FEW PIGMENT LADEN MACROPHAGES WITHIN THE AMNION AND CHORION, CONSISTENT WITH MECONIUM STAINING (MILD). TRIVASCULAR CORD. B. FIBROID, EXCISION: LEIOMYOMA, 1 GRAM. Electronically Signed Clyde Delarosa M.D. Gross Description A. The specimen is received fresh labeled "placenta" and is a 423 gram, 18 x 16 x 2.4 cm. placenta with attached membranes and umbilical cord. The attached membranes are glistening and translucent and insert marginally. The umbilical cord measures 19cm. in length and averages 1.3 cm. in diameter. The cord inserts eccentrically 3 cm from the margin. No true knots or strictures are identified. Cut surface of the umbilical cord reveals 3 vessels. The surface is barnes-blue with minimal fibrin deposition and appropriate caliber vessels. The maternal surface is red-brown with focal defects. Sectioning reveals red-brown, spongy parenchyma. No lesions are identified. Tumbling And Rolling Supervisor sections are submitted in three cassettes as follows: 1- membrane rolls and umbilical cord; 2-3- full thickness sections of placenta. B. Received fresh labelled "fibroid" is a nodule weighing 1 g and measures 1.8 cm in greatest dimension. Bisecting the nodule shows white whorled cut surfaces. No hemorrhage or necrosis identified. The specimen is entirely submitted in one cassette. KWS/06/19/2020 sulki06/19/2020
== END 2020-06-18 12:00 | disposition home or self-care (01) | DRG 540 ==
LOC: JLDR 11:30 → J3W 06-15 17:20
PROVIDERS: ADMIT Obstetrics & Gynecology; ATTEND Obstetrics & Gynecology
PROC: 3E0P7VZ Introduction of Hormone into Female Reproductive, Via Natural or Artificial Opening (ICD-10-PCS; 2020-06-13)
PROC: 10D00Z1 Extraction of Products of Conception, Low, Open Approach (ICD-10-PCS; principal; 2020-06-15)
DX: O48.0 Post-term pregnancy (principal); O41.03X0 Oligohydramnios, third trimester, not applicable or unspecified; O32.4XX0 Maternal care for high head at term, not applicable or unspecified; O62.0 Primary inadequate contractions; O99.824 Streptococcus B carrier state complicating childbirth; Z3A.40 40 weeks gestation of pregnancy; Z37.0 Single live birth; Z91.013 Allergy to seafood; Z91.048 Other nonmedicinal substance allergy status
CPT/HCPCS: 36415; 36600; 80048; 82803; 85025; 85027; 85610; 85730; 86780; 86850; 86900; 86901; 87389; 88305-TC; 88307-TC; U0003

== ENCOUNTER 2025-06-22 06:11 | Day surgery (SDC) | payer OTHER ==
[2025-06-16 16:40] VITALS: BMI 24.2
[2025-06-22] MEDS ORDERED: IBUPROFEN 400 MG TABLET (FP) PO PRN (11:00)
[2025-06-22] MEDS ORDERED: ACETAMINOPHEN 325 MG TABLET (FP) PO PRN (11:00)
[2025-06-22] MEDS ORDERED: ONDANSETRON 4 MG/2 ML VIAL IVPUSH PRN ×2 (12:24→12:30)
[2025-06-22] MEDS ORDERED: ACETAMINOPHEN 1000 MG/100 ML BAG IVPB PRN (12:30)
[2025-06-22] MEDS ORDERED: LACTATED RINGERS SOLUTION 1,000 ML IV SCH (12:30)
[2025-06-22] MEDS ORDERED: MIDAZOLAM HCL 2 MG/2 ML SINGLE DOSE VIAL ONE ×2 (12:37→12:46)
[2025-06-22] MEDS ORDERED: PROPOFOL 20 ML ONE (12:40)
[2025-06-22] MEDS ORDERED: LIDOCAINE HCL/PF 2% SDV 5ML VIAL ONE (12:40)
[2025-06-22] MEDS ORDERED: DEXAMETHASONE SOD PHOSPHATE 4 MG/1 ML VIAL ONE ×2 (12:51)
[2025-06-22] MEDS: LACTATED RINGERS SOLUTION 1,000 ML IV SCH (14:35)
[2025-06-22 15:16] VITALS: BP 116/62; PULSE 62; RESP 15; TEMP 97.5
== END 2025-06-22 15:16 | disposition home or self-care (01) ==
LOC: JASU-SURG 06:11
PROVIDERS: ATTEND Obstetrics & Gynecology
PROC: 0UN98ZZ Release Uterus, Via Natural or Artificial Opening Endoscopic (ICD-10-PCS; principal; 2025-06-22 12:00)
DX: N84.1 Polyp of cervix uteri (principal); N85.6 Intrauterine synechiae
CPT/HCPCS: 81025; 88305-TC; 94760